=== PATIENT | male | born 1940 | race Caucasian/White ===

== ENCOUNTER 2017-03-18 14:11 | Emergency (ER) | payer MEDICARE, OTHER ==
[~2017-03-18] VITALS: Ht 185.4 cm; Wt 115.0 kg
[2017-03-18] MEDS ORDERED: HYDROmorphone 1 mg/ml syringe IV ONE (14:50)
[2017-03-18] MEDS ORDERED: HYDROmorphone 1 mg/ml syringe IM ONE (14:50)
[2017-03-18] MEDS ORDERED: HYDROmorphone inj. 0.5 MG/0.5 ML DISP.SYRIN ONE (14:52)
[2017-03-18] MEDS ORDERED: LORazepam 2 mg/ml vial IM ONE (14:55)
[2017-03-18] MEDS ORDERED: vancomycin inj 1,000 MG in normal saline 250ml IV soln 250 ML IV STA (14:58)
[2017-03-18] MEDS ORDERED: normal saline 1000ML IV soln IVB ONE (15:15)
[2017-03-18] MEDS ORDERED: vancomycin/NS 1 GM ADD-VANTAGE 250 ML IV STA (15:17)
[2017-03-18 15:19] LABS: BASOPHILS % (AUTO) 0.2 % (0-1); EOSINOPHILS # (AUTO) 0.1 X10'3 (0-0.9); EOSINOPHILS % (AUTO) 0.8 % (0-6); HEMATOCRIT 45.3 % (42.0-52.0); HEMOGLOBIN 14.9 g/dl (14.0-17.9); LYMPHOCYTES % (AUTO) 12.7 % (21-51); MEAN CORPUSCULAR HEMOGLOBIN 28.3 PG (27.0-31.0); MEAN CORPUSCULAR VOLUME 85.9 FL (78-98); MEAN PLATELET VOLUME 8.9 FL (7.4-10.4); MONOCYTES % (AUTO) 12.6 % (2-12); NEUTROPHILS # (AUTO) 5.6 X10'3 (1.8-7.7); NEUTROPHILS % (AUTO) 73.7 % (42-75); PLATELET COUNT 186 X10'3 (140-440); RED BLOOD COUNT 5.27 X10'6 (4.70-6.10); RED CELL DISTRIBUTION WIDTH 15.7 % (11.5-14.5); WHITE BLOOD COUNT 7.6 X10'3 (4.5-11.0)
[2017-03-18 15:29] LABS: PARTIAL THROMBOPLASTIN TIME 30 SECONDS (22-32); PROTHROMBIN TIME 10.7 SECONDS (9.0-12.0)
[2017-03-18 15:34] LABS: ALANINE AMINOTRANSFERASE 33 U/L (12-78); ALBUMIN 3.7 G/DL (3.4-5.0); ALBUMIN/GLOBULIN RATIO 0.9 (1.1-1.5); ALKALINE PHOSPHATASE 78 IU/L (46-116); ANION GAP 9 (8-16); ASPARTATE AMINO TRANSFERASE 16 U/L (10-37); BILIRUBIN,TOTAL 0.6 MG/DL (0.1-1.0); BLOOD UREA NITROGEN 18 MG/DL (7-18); BUN/CREATININE RATIO 16.4 (5.4-32.0); CALCIUM 9.5 MG/DL (8.5-10.1); CHLORIDE 102 MMOL/L (99-107); GLUCOSE 119 MG/DL (70-104); MAGNESIUM 2.3 MG/DL (1.5-2.4); SODIUM 138 MMOL/L (135-145); TOTAL CARBON DIOXIDE 26.6 MMOL/L (24-32); eGFR 65 ML/MIN
[2017-03-18] MEDS ORDERED: LORazepam 2 mg/ml vial IV ONE (16:05)
[2017-03-18 16:25] LABS: CLARITY,URINE CLEAR (Clear); COLOR,URINE YELLOW (Yellow); GLUCOSE, URINE NEGATIVE (Neg); KETONES,URINE NEGATIVE (Neg); LEUKOCYTE ESTERASE ,URINE NEGATIVE (Neg); NITRITES, URINE NEGATIVE (Neg); OCCULT BLOOD,URINE NEGATIVE (Neg); PROTEIN,URINE NEGATIVE (Neg); UROBILINOGEN,URINE 0.2 E.U/dL (0.2-1.0)
[2017-03-18 16:29] LABS: UA COLLECTION TYPE CLN CATCH MIDSTREAM
[2017-03-18 17:18] LABS: C-REACTIVE PROTEIN 11.25 MG/DL (0.0-0.5); CREATINE KINASE 55 U/L (39-308)
[2017-03-18] MEDS ORDERED: HYDROmorphone inj. 0.5 MG/0.5 ML DISP.SYRIN IV ONE (18:05)
[2017-03-18] MEDS ORDERED: piperacillin/tazo 3.375gm/50ml 50 ML IV SCH (20:00)
[2017-03-18] MEDS ORDERED: triamcinolone acetonide 40mg/ml inj IM ONE (20:00)
[2017-03-18] MEDS ORDERED: COLC0.6T69 PO (22:19)
[2017-03-18] MEDS ORDERED: HYDR-3965 PO (22:19)
[2017-03-18 23:01] VITALS: BP 127/84
== END 2017-03-18 23:02 | disposition home or self-care (01) ==
LOC: ER 14:12
DX: M10.9 Gout, unspecified (principal); M54.2 Cervicalgia; M25.572 Pain in left ankle and joints of left foot; M25.571 Pain in right ankle and joints of right foot; E78.00 Pure hypercholesterolemia, unspecified; R79.82 Elevated C-reactive protein (CRP); I10 Essential (primary) hypertension; Z79.899 Other long term (current) drug therapy
CPT/HCPCS: 36415; 71045; 72141; 72146; 72148; 72195; 80053; 81003; 82550; 83605; 83735; 84145; 85025; 85610; 85651; 85730; 86140; 87040; 87502; 87503; 93005; 96365; 96367; 96372; 96375; 96376; 99285; J1170; J2060; J2270; J2543; J3301; J3370; J7030

== ENCOUNTER 2021-10-31 18:20 | Emergency (ER) | payer MEDICARE ==
[~2021-10-31] VITALS: Ht 185.4 cm; Wt 93.6 kg
[~2021-10-31 18:20] MED LIST: COLC0.6T72 PO
[2021-10-31 18:25] VITALS: BP 190/108
[2021-10-31 18:56] LABS: CLARITY,URINE CLEAR (Clear); GLUCOSE, URINE NEGATIVE (Neg); KETONES,URINE NEGATIVE (Neg); LEUKOCYTE ESTERASE ,URINE SMALL (Neg); NITRITES, URINE NEGATIVE (Neg); OCCULT BLOOD,URINE LARGE (Neg); PH,URINE 6.5 (4.8-8.0); PROTEIN,URINE TRACE mg/dl (Neg); UROBILINOGEN,URINE 0.2 E.U/dL (0.2-1.0)
[2021-10-31 18:57] LABS: COLOR,URINE PINK (Yellow); UA COLLECTION TYPE CLN CATCH MIDSTREAM
[2021-10-31 19:13] LABS: BACTERIA,URINE NONE SEEN /HPF (Neg); CAL OXALATE CRYSTALS FEW /HPF (NEGATIVE); MUCUS STRANDS NONE SEEN /LPF (Neg); SQUAMOUS EPITHELIAL CELL,UR NONE SEEN /LPF (FEW); WBC,URINE 0-4 /HPF (0-4)
[2021-10-31 20:20] LABS: BASOPHILS # (AUTO) 0.1 X10'3 (0-0.2); BASOPHILS % (AUTO) 1.2 % (0-1); EOSINOPHILS # (AUTO) 0.2 X10'3 (0-0.9); EOSINOPHILS % (AUTO) 3.7 % (0-6); HEMATOCRIT 37.6 % (42.0-52.0); HEMOGLOBIN 12.3 g/dl (14.0-17.9); LYMPHOCYTES # (AUTO) 0.9 X10'3 (1.1-4.8); LYMPHOCYTES % (AUTO) 16.9 % (21-51); MEAN CORPUSCULAR HEMOGLOBIN 26.3 PG (27.0-31.0); MEAN CORPUSCULAR HGB CONC 32.6 g/dL (33.0-36.5); MEAN CORPUSCULAR VOLUME 80.7 FL (78-98); MONOCYTES # (AUTO) 0.6 X10'3 (0-0.9); MONOCYTES % (AUTO) 10.9 % (2-12); NEUTROPHILS # (AUTO) 3.7 X10'3 (1.8-7.7); NEUTROPHILS % (AUTO) 67.3 % (42-75); PLATELET COUNT 260 X10'3 (140-440); RED BLOOD COUNT 4.66 X10'6 (4.70-6.10); RED CELL DISTRIBUTION WIDTH 17.6 % (11.5-14.5); WHITE BLOOD COUNT 5.5 X10'3 (4.5-11.0)
[2021-10-31 20:26] LABS: APTT 28 SECONDS (22-32)
[2021-10-31 20:29] LABS: ALANINE AMINOTRANSFERASE 22 U/L (12-78); ALBUMIN 3.5 G/DL (3.4-5.0); ALBUMIN/GLOBULIN RATIO 0.9 (1.1-1.5); ALKALINE PHOSPHATASE 91 IU/L (46-116); ANION GAP 6 (8-16); ASPARTATE AMINO TRANSFERASE 16 U/L (10-37); BILIRUBIN,TOTAL 0.3 MG/DL (0.1-1.0); BLOOD UREA NITROGEN 18 MG/DL (7-18); CHLORIDE 105 MMOL/L (99-107); CREATININE 0.75 MG/DL (0.60-1.10); GLUCOSE 104 MG/DL (70-104); POTASSIUM 4.5 MMOL/L (3.5-5.1); SODIUM 141 MMOL/L (135-145); TOTAL CARBON DIOXIDE 30.1 MMOL/L (24-32); TOTAL PROTEIN 7.2 G/DL (6.4-8.2); eGFR > 90 ML/MIN
[2021-10-31] MEDS ORDERED: morphine IR (immed. release) 30mg tablet PO ONE (21:30)
[2021-10-31] MEDS ORDERED: MORP15TA PO (22:03)
== END 2021-10-31 22:24 | disposition home or self-care (01) ==
LOC: ER 18:21
DX: R31.9 Hematuria, unspecified (principal); N32.89 Other specified disorders of bladder; R10.30 Lower abdominal pain, unspecified; E78.00 Pure hypercholesterolemia, unspecified; I10 Essential (primary) hypertension
CPT/HCPCS: 36415; 80053; 81001; 85025; 85610; 85730; 87088; 99283

== ENCOUNTER 2024-01-05 10:12 | Day surgery (SDC) | payer MEDICARE, OTHER ==
[~2024-01-05] VITALS: Ht 185.4 cm; Wt 104.2 kg
[2024-01-05] VITALS (9 sets, daily range): BP systolic 132–168; BP diastolic 60–119; PULSE 56–70; RESP 10–12; TEMP 97.8; O2SAT 99
[2024-01-05] MEDS ORDERED: OLME40TA18 PO (10:52)
[2024-01-05] MEDS ORDERED: ATOR-2 PO (10:52)
[2024-01-05] MEDS ORDERED: ASPI-1265 PO (10:52)
[2024-01-05] MEDS ORDERED: METF-436 PO (10:52)
[2024-01-05 11:13] LABS: BASOPHILS % (AUTO) 0.7 % (0-1); EOSINOPHILS # (AUTO) 0.1 X10'3 (0-0.9); EOSINOPHILS % (AUTO) 2.4 % (0-6); HEMATOCRIT 46.6 % (42.0-52.0); HEMOGLOBIN 15.6 g/dl (14.0-17.9); LYMPHOCYTES # (AUTO) 0.7 X10'3 (1.1-4.8); LYMPHOCYTES % (AUTO) 16.7 % (21-51); MEAN CORPUSCULAR HEMOGLOBIN 31.5 PG (27.0-31.0); MEAN CORPUSCULAR HGB CONC 33.4 g/dL (33.0-36.5); MEAN CORPUSCULAR VOLUME 94.1 FL (78-98); MEAN PLATELET VOLUME 7.7 FL (7.4-10.4); MONOCYTES # (AUTO) 0.4 X10'3 (0-0.9); MONOCYTES % (AUTO) 9.4 % (2-12); NEUTROPHILS # (AUTO) 2.9 X10'3 (1.8-7.7); NEUTROPHILS % (AUTO) 70.8 % (42-75); PLATELET COUNT 139 X10'3 (140-440); RED BLOOD COUNT 4.95 X10'6 (4.70-6.10); RED CELL DISTRIBUTION WIDTH 14.3 % (11.5-14.5); WHITE BLOOD COUNT 4.1 X10'3 (4.5-11.0)
[2024-01-05 11:16] LABS: ALBUMIN 4.2 G/DL (3.4-5.0); ANION GAP 9 (8-16); BLOOD UREA NITROGEN 15 MG/DL (7-18); BUN/CREATININE RATIO 13.9 (10.0-20.0); CALCIUM 9.3 MG/DL (8.5-10.1); CHLORIDE 105 MMOL/L (99-107); CREATININE 1.08 MG/DL (0.60-1.10); GLUCOSE 110 MG/DL (70-104); POTASSIUM 4.6 MMOL/L (3.5-5.1); SODIUM 141 MMOL/L (135-145); TOTAL CARBON DIOXIDE 27.5 MMOL/L (24-32); eCRCL 59 ML/MIN; eGFR 65 ML/MIN
[2024-01-05 11:18] LABS: PROTHROMBIN TIME 10.8 SECONDS (9.0-12.0)
[2024-01-05] MEDS: normal saline 1,000 ML IV SCH (11:20)
[2024-01-05] MEDS: diphenhydrAMINE 25mg capsule PO PRN (11:20)
[2024-01-05] MEDS: sodium bicarbonate 1meq/ml syr 150 ML in dextrose 5%-water 1,000 ML IV ONE (11:37)
[2024-01-05] MEDS ORDERED: LIDOcaine 1% (10mg/ml) 2ml vial ONE (14:33)
[2024-01-05] MEDS ORDERED: verapamil 2.5 mg/ml inj IV ONE (14:34)
[2024-01-05] MEDS ORDERED: fentaNYL/PF 50MCG/1 ML 2ML syringe ONE (14:34)
[2024-01-05] MEDS ORDERED: heparin 1,000unit/ml 10ml vial 10 ML ONE (14:34)
[2024-01-05] MEDS ORDERED: iohexol 350MG/ML 100ml bottle IV ONE ×2 (14:34→15:40)
[2024-01-05] MEDS ORDERED: midazolam 1 mg/ML 2ml injection ONE ×3 (14:34→15:51)
[2024-01-05] MEDS ORDERED: iohexol 350 MG/ML 50ML vial IV ONE (14:36)
[2024-01-05] MEDS ORDERED: nitroGLYCERIN 500mcg/5mL D5W 5 ML IV ONE (14:37)
[2024-01-05] MEDS ORDERED: LIDOcaine 1% 30ml preserv. free vial ONE (15:21)
[2024-01-05] MEDS ORDERED: clopidogrel 300mg tablet ONE (16:04)
[2024-01-05] MEDS ORDERED: HYDROcodone/acetaminophen 5mg/325mg tablet PO PRN (17:35)
[2024-01-05] MEDS ORDERED: proCHLORperazine 10 MG/2 ml inj IV PRN (17:35)
[2024-01-05] MEDS ORDERED: ondansetron/PF 4mg/2ml inj IV PRN (17:35)
[2024-01-05] MEDS ORDERED: HYDROcodone/acetaminophen 10/325mg tab PO PRN (17:35)
[2024-01-08] MEDS ORDERED: CLOP-32 PO (12:09)
== END 2024-01-05 19:30 | disposition home or self-care (01) ==
LOC: SSTAY O 10:12
PROVIDERS: ATTEND Internal Medicine Cardiovascular Disease
DX: I25.118 Atherosclerotic heart disease of native coronary artery with other forms of angina pectoris (principal); I10 Essential (primary) hypertension; E11.9 Type 2 diabetes mellitus without complications; E78.5 Hyperlipidemia, unspecified; M10.9 Gout, unspecified; Z85.51 Personal history of malignant neoplasm of bladder; Z79.82 Long term (current) use of aspirin; Z79.84 Long term (current) use of oral hypoglycemic drugs; Z79.899 Other long term (current) drug therapy; Z95.5 Presence of coronary angioplasty implant and graft
CPT/HCPCS: 36415; 80048; 82948; 83735; 85025; 85610; 93005; 93458; 99152; 99153; A6258; A6402; C1725; C1751; C1769; C1874; C1887; C1894; C9600; J1644; J2003; J2250; J3010; J3490; J7030; J7070; Q0163; Q9967; Z7610

== ENCOUNTER 2024-12-06 06:22 | Day surgery (SDC) | payer MEDICARE, OTHER ==
[2024-12-06] VITALS (11 sets, daily range): BP systolic 123–147; BP diastolic 83–99; PULSE 56–63; RESP 13–16; O2SAT 93–96
[~2024-12-06] VITALS: Ht 185.4 cm; Wt 96.4 kg
[~2024-12-06 06:22] MED LIST changes: +ASPI-1265 PO; +ATOR-2 PO; +CLOP-32 PO; -COLC0.6T72 PO; +METF-436 PO; +OLME40TA18 PO
[2024-12-06] MEDS ORDERED: CLOP75TA34 PO (06:59)
--- NOTE | 2024-12-06 06:59 | ELECTROCARDIOGRAPH REPORT ---
[facility] Test Date: 2024-12-06 Test Time: 06:56:14 Pat Name: LUTHER PENN Department: [facility] Patient ID: [id number] Room: Gender: M Search Marketing Coordinator: DENISE : 1940 Requested By: CAROLINA POLANCO Order Number: [id number] Reading MD: Dr. Ari Mehta Measurements Intervals [place] Rate: 67 P: 13 [place]: 157 QRS: -6 QRSD: 106 T: 86 QT: 424 QTc: 448 Interpretive Statements Sinus rhythm Atrial premature complexes Electronically Signed On 12-09-2024 7:10:[address] Ari Mehta Please click the below link to view image of tracing.
[2024-12-06] MEDS ORDERED: EZET10TA80 PO (07:03)
[2024-12-06 07:43] LABS: INR 1.0 INR
[2024-12-06 07:49] LABS: MEAN PLATELET VOLUME 8.2 FL (7.4-10.4); RED CELL DISTRIBUTION WIDTH 15.1 % (11.5-14.5)
[2024-12-06 08:14] LABS: CREATININE 0.92 MG/DL (0.60-1.10); TOTAL CARBON DIOXIDE 24.0 MMOL/L (24-32); eCRCL 68 ML/MIN; eGFR 78 ML/MIN
[2024-12-06] MEDS: sodium bicarbonate 1meq/ml syr 150 ML in dextrose 5%-water 1,000 ML IV ONE (08:41)
[2024-12-06] MEDS ORDERED: midazolam 1 mg/ML 2ml injection ONE ×2 (08:51→11:20)
[2024-12-06] MEDS ORDERED: LIDOcaine 1% (10mg/ml) 2ml vial ONE ×2 (08:51→11:27)
[2024-12-06] MEDS ORDERED: verapamil 2.5 mg/ml inj IV ONE (08:51)
[2024-12-06] MEDS ORDERED: fentaNYL/PF 50MCG/1 ML 2ML syringe ONE (08:52)
[2024-12-06] MEDS ORDERED: nitroGLYCERIN 500mcg/5mL D5W 5 ML IV ONE (08:52)
[2024-12-06] MEDS ORDERED: iohexol 350 MG/ML 50ML vial IV ONE (08:52)
[2024-12-06] MEDS ORDERED: heparin 1,000unit/ml 10ml vial 10 ML ONE (08:52)
--- NOTE | 2024-12-06 13:53 | CARDIOLOGY REPORT ---
DATE OF SERVICE: 12/06/2024 DICTATING PHYSICIAN: CAROLINA POLANCO DO CARDIAC CATHETERIZATION REPORT REFERRING PHYSICIAN: Mindi Davis MD. CLINICAL HISTORY: This 84-year-old man has had previous stenting to the LAD and circumflex coronary arteries. He is not currently experiencing chest pain but has easy exertional dyspnea. There has been some concern that he has aortic stenosis. For those reasons, a cardiac catheterization was performed. PROCEDURES PERFORMED: * Right heart catheterization. * Left heart catheterization. * Left ventriculography. * Selective coronary arteriography. * There was 1 hour and 15 minutes of conscious sedation supervision. DESCRIPTION OF PROCEDURE: The patient was sedated with fentanyl and Versed. He was then prepared and draped in the usual manner. Right heart catheterization was performed using a 6-Guamanian sheath in the right arm basilic vein. Cardiac output was determined by thermal dilution technique. A 6-Guamanian sheath was placed in the radial artery using a standard protocol and technique. Using this sheath and a Choice PT2 guidewire, the calcified aortic valve was eventually passed with a straight wire. An Amplatz catheter used to align the wire was passed across the valve. The wire was pulled out temporarily to shape a large J. It was then replaced in the Amplatz. The Amplatz catheter was removed and a double-lumen Viet catheter was placed across the aortic valve. After appropriate zeroing and measuring, the patient was found to have about an 8 mm [id number]-lbfw gradient across the aortic valve. Cardiac output during the right heart catheterization was 3.3. According to these numbers, the valve area was 1.17 cm2. HEMODYNAMIC DATA: The mean right atrial pressure was 1, right ventricular pressure was 23/2, pulmonary capillary wedge pressure average was 1. Pulmonary arterial pressure was 21/2 mmHg. Left ventricular end diastolic pressure was 12 mmHg. LEFT VENTRICULOGRAM: The left ventriculogram was technically satisfactory. The ejection fraction appeared to be about 65-70%. There was very heavy calcification of the aortic valve. CORONARY ARTERIOGRAPHY: The coronary arteriograms were technically satisfactory. The patient had a right dominant system. RIGHT CORONARY ARTERY: The right coronary was a large main stem vessel. There was a small posterior descending branch, a small first posterolateral branch, and a medium-sized second posterolateral. The proximal right coronary contained approximately a 60% stenosis proximally. LEFT MAIN CORONARY ARTERY: The left main was a large, unobstructed vessel trifurcating into the left anterior descending intermediate and circumflex coronary artery. LEFT ANTERIOR DESCENDING CORONARY ARTERY: The LAD was a medium to large transapical vessel. There was a 60% stenosis proximally, about a 50% stenosis in the mid vessel and a 50-60% stenosis in the distal vessel. INTERMEDIATE ARTERY: The intermediate was a large vessel, narrowed by about 60-70% at its origin. CIRCUMFLEX CORONARY ARTERY: The circumflex was a large main stem vessel. The first obtuse marginal was medium to large in size. There were two 75% stenoses in the proximal portion of this vessel. Distally, there was a small posterolateral branch narrowed by about 75%. CONCLUSIONS: * Severe aortic stenosis, although pressure measurements were low. There was an 8 mm gradient across the aortic valve. The cardiac output with 3 separate runs was 3.3 L each time. Once again, the aortic valve area was estimated to be 1.17 cm2. * Diffuse 3-vessel coronary artery disease, which is extensive enough that multivessel PCI does not look like a reasonable approach. RECOMMENDATIONS: The patient may be best served by multivessel bypass and aortic valve replacement since the valve area is almost 1 cm2. CAROLINA POLANCO DO TID: [id number] RECEIPT: [id number] SJ IRWIN
== END 2024-12-06 17:00 | disposition home or self-care (01) ==
LOC: SSTAY O 06:22
PROVIDERS: ATTEND Internal Medicine Cardiovascular Disease
DX: I25.118 Atherosclerotic heart disease of native coronary artery with other forms of angina pectoris (principal); I49.1 Atrial premature depolarization; I10 Essential (primary) hypertension; E11.9 Type 2 diabetes mellitus without complications; E78.5 Hyperlipidemia, unspecified; M10.9 Gout, unspecified; I35.0 Nonrheumatic aortic (valve) stenosis; Z87.891 Personal history of nicotine dependence; Z79.02 Long term (current) use of antithrombotics/antiplatelets; Z79.84 Long term (current) use of oral hypoglycemic drugs; Z79.899 Other long term (current) drug therapy; Z95.5 Presence of coronary angioplasty implant and graft; Z96.641 Presence of right artificial hip joint; Z98.890 Other specified postprocedural states
CPT/HCPCS: 36415; 80048; 83735; 85025; 85610; 93005; 93460; 99152; 99153; A6258; A6402; C1751; C1769; C1887; C1894; J1644; J2003; J2250; J3010; J3490; J7030; J7070; Q0163; Q9967; Z7610; A6449

== ENCOUNTER 2024-12-18 18:45 | Inpatient (IN) | payer MEDICARE, OTHER ==
[~2024-12-18] VITALS: Ht 185.4 cm; Wt 106.0 kg
[~2024-12-18 18:45] MED LIST changes: -CLOP-32 PO; +CLOP75TA34 PO; +EZET10TA80 PO
--- NOTE | 2024-12-18 18:56 | ELECTROCARDIOGRAPH REPORT ---
[facility] Test Date: 2024-12-18 Test Time: 18:53:18 Pat Name: LUTHER PENN Department: EMERGENCY ROOM Room: [place] [address] Gender: M Dividend Deposit Entry Clerk: : 1940 Requested By: MARIA DOLORES REYNOSO Order Number: [id number] Reading MD: Dr. Oscar Ho Measurements Intervals [place] Rate: 74 P: -13 [place]: 160 QRS: -41 QRSD: 95 T: 82 QT: 406 QTc: 451 Interpretive Statements Sinus rhythm Left axis deviation Abnormal R-wave progression, late transition Electronically Signed On 12-20-2024 7:41:[address] Oscar Ho Please click the below link to view image of tracing.
--- NOTE | 2024-12-18 19:12 | Physician Documentation ---
History of Present Illness ~ Chief Complaint: Chest Pain Stated Complaint: CP Time Seen by MD: 18:48 Primary Medical Doctor: steve ULRICH Patient presents to the emergency room with chief complaint of chest pain. History of coronary disease with multiple stent placements. He had a recent cardiac catheterization performed by Dr. Aguayo who recommended bypass along with aortic valve surgery instead of PCI. He states that has pain has been getting worse with activity. Pain is described as dull in nature Medication Reconciliation Allergies: Coded Allergies: No Known Drug Allergies (Verified Allergy, Unknown, 03/18/17) Scheduled Aspirin (Aspirin), 1 TAB PO DAILY, (Reported) Atorvastatin Calcium (Atorvastatin Calcium), 1 TAB PO DAILY, (Reported) Clopidogrel Bisulfate (Clopidogrel), 1 TAB PO DAILY, (Reported) Ezetimibe (Ezetimibe), 1 TAB PO DAILY, (Reported) Metformin Hcl (Metformin Hcl), 1 TAB PO DAILY, (Reported) Olmesartan Medoxomil (Olmesartan Medoxomil), 1 TAB PO DAILY, (Reported) Past Medical History Past Medical History: High Cholesterol, Hypertension, Gout Past Surgical History: other Other Past Surgical History: CARDIAC STENT Drug Use: none Lives with: Spouse Lives In: Home Occupation: retired Review of Systems ROS All review of systems negative except as per HPI Physical Exam Vital Signs: Temperature: 98.5, Source: Oral, Heart Rate: 73, Respiratory Rate: 18, BP: 111/73, Pulse Oximetry: 96, Weight: 94.400 Oxygen Flow Rate: 0 Physical Exam General: Patient is awake, alert, oriented x4 in no acute distress Head: Normocephalic and atraumatic. Eyes: Conjunctival normal. EOMI. PERRL. ENT: Mucous membranes moist. Neck: Supple, trachea is midline. Chest: Clear to auscultation bilaterally without rales, rhonchi, or wheezes. There is no accessory muscle use or retractions. Cardiac: RRR without murmurs, gallops, or rubs. Abd: Soft, nondistended, nontender, with normoactive bowel sounds. No guarding, rebound, or rigidity. Progress Progress Note I have personally spoken with our Cardiothoracic surgeon he had reviewed patient's case and we would like him to be admitted for definitive management Results/Orders Results/Orders Orders - SONNY ROWE MD Chest,Single View (12/18/24 18:48) Monitor (12/18/24 18:48) Saline Lock (12/18/24 18:48) Oxygen (12/18/24 18:48) Cbc/Diff (12/18/24 18:48) Hs Troponin I W Calculations (12/18/24 20:48) Hs Troponin I W Calculations (12/18/24 21:48) Completed Orders - SONNY ROWE MD Chest,Single View (12/18/24 18:48) BMP (12/18/24 18:48) PBNP (12/18/24 18:48) Electrocardiogram (12/18/24 18:48) Hs Troponin I W Calculations (12/18/24 18:48) Ondansetron Inj. (Zofran 4mg/2ml Vial) (12/18/24 19:25) Morphine 4mg/Ml Inj. (Morphine Inj.) (12/18/24 19:25) Medications Received in ER Medications (Trade) Dose Ordered Sig/Miryam Route PRN Reason Start Time Stop Time Status Last Admin Dose Admin (Zofran 4mg/2ml vial) 4 mg ONCE ONCE IV 12/18/24 19:25 12/18/24 19:26 DC 12/18/24 19:36 4 MG (morphine inj.) 4 mg ONCE ONCE IV 12/18/24 19:25 12/18/24 19:26 DC 12/18/24 19:36 4 MG Vital Signs 12/18/24 12/18/24 18:49 19:36 Temp 98.5 Pulse 73 Resp 18 16 B/P (MAP) 111/73 Pulse Ox 96 O2 Flow Rate 0 Laboratory Tests Test 12/18/24 19:09 CBC Comment Sodium Level 141 Potassium Level 4.6 Chloride Level 104 Carbon Dioxide Level 28.7 Anion Gap 8 Blood Urea Nitrogen 18 Creatinine 0.72 Estimated GFR/1.73 m2 > 90 BUN/Creatinine Ratio 25.0 H Glucose Level 131 H Calcium Level 8.9 Troponin I High Sensitivity 11 Pro-B-Type Natriuretic Peptide 67 Albumin 2.9 L Chemistry Comments Medical Decision Making Additional information obtaine: old records Findings Patient presents to the emergency room with chest pain as per HPI. That has spoken with Dr. Malone regarding patient's case. Troponins negative. We will admit for definitive management. Heart Score: 6 Differential Dx:Considerations: Include: angina, aortic dissection, chest wall pain, cholelithiasis, CHF, costochondritis, esophageal reflux/spasm, gastritis, herpes zoster, myocardial infarction, pericarditis, pleuritis, pancreatitis, pneumonia, pneumothorax, pulmonary embolus, other Departure Admitted to Inpatient Unit: yes, to hospitalist Impression: Primary Impression: Chest pain on exertion Condition: Guarded Referrals: NO PRIMARY CARE PROVIDER (PCP) Signature Scribe Signature: No scribe Attestation: The note accurately reflects work and decisions made by me.Sonny Rowe MD 12/18/24 19:45 SONNY ROWE MD Dec 18, 2024 19:12
--- NOTE | 2024-12-18 19:22 | RADIOLOGY REPORT ---
EXAM: DI CHEST,SINGLE VIEW TECHNIQUE: Single frontal chest radiograph CLINICAL HISTORY: CP COMPARISON: None FINDINGS/IMPRESSION: The lungs are clear. The cardiomediastinal silhouette is unremarkable. No pleural effusion or pneumothorax. No acute osseous abnormality.
[2024-12-18] MEDS: ondansetron/PF 4mg/2ml inj IV ONE (19:36)
[2024-12-18] MEDS: morphine 4 MG/ML inj SYRINge IV ONE (19:36)
[2024-12-18 19:41] LABS: CREATININE 0.72 MG/DL (0.60-1.10); PRO BRAIN NATRIURETIC PEPTIDE 67 PG/ML (0-450); TOTAL CARBON DIOXIDE 28.7 MMOL/L (24-32); eCRCL 86 ML/MIN; eGFR > 90 ML/MIN
[2024-12-18 19:44] LABS: MEAN PLATELET VOLUME 8.2 FL (7.4-10.4); RED CELL DISTRIBUTION WIDTH 15.8 % (11.5-14.5)
[2024-12-18] MEDS ORDERED: OXYB5TAB21 PO (20:03)
[2024-12-18] MEDS ORDERED: magnesium hydroxide 30ml (MOM) UD suspension PO PRN (20:55)
[2024-12-18] MEDS ORDERED: ondansetron/PF 4mg/2ml inj IV PRN (20:55)
[2024-12-18] MEDS ORDERED: mag hydrox/Alum hydrox/simeth 30ml oral suspension PO PRN (20:55)
--- NOTE | 2024-12-18 21:10 | HISTORY AND PHYSICAL-Residence ---
History & Physical Providers to CC Resident Creating Document: MORGAN GONCALVES, PATRICIA ~ History of Present Illness Primary Medical Doctor: steve Reason for Admit\Complaint: CABG History of Present Illness This is an 84-year-old male with a history of CAD s/p PCI of LAD and LCX two years ago, hypertension, diabetes mellitus, came to the ER with a chief complaint of frequent episodes of chest pain. The chest pain is located more on the left side, stabbing type, nonradiating, graded 10/10. The pain does not correlate with activity, occurs even at rest. For the last two weeks he has been having increased episodes of chest pain with more intensity, about 3-4 episodes a day, each lasting about 40 minutes. Denies any other complaints of palpitations, shortness of breadth, sweating, leg swellings, nausea, vomiting, fever. His conference center coordinator is Dr. Aguayo On 12/06/2024 he had cardiac catheterization done by Dr. Aguayo, showed diffuse three-vessel coronary artery disease which was extensive that a PCI could not be for performed, also showed severe aortic stenosis. Patient has been referred to Dr. Malone and a CABG and aortic valve replacement has been planned. The ER physician contacted Dr. Malone who recommended to admit the patient and we will likely do with the surgery tomorrow. Allergies: Coded Allergies: No Known Drug Allergies (Verified Allergy, Unknown, 03/18/17) Home Medications Home Medications Active Reported Oxybutynin Chloride 5 Mg Tablet 0.5 Tab PO Q12H 30 Days Ezetimibe 10 Mg Tablet 1 Tab PO DAILY Clopidogrel (Clopidogrel Bisulfate) 75 Mg Tablet 1 Tab PO DAILY Aspirin 81 Mg Tab.chew 1 Tab PO DAILY Metformin Hcl 500 Mg Tablet 1 Tab PO DAILY Olmesartan Medoxomil 40 Mg Tablet 1 Tab PO DAILY Atorvastatin Calcium 80 Mg Tablet 1 Tab PO DAILY Past Medical History Past Medical History CAD s/p PCI of LAD and LCX two years ago Hypertension Borderline diabetes Hyperlipidemia. History of bladder cancer 40 years ago, treated with surgery. Past Surgical History Surgical History Comment Right hip replacement 10 years ago Past Social History Social History Comment Denies any history of smoking Drinks toddy occasional No history of any other drug use Lives with his and is functionally independent Drug Use: None Lives with: Spouse Lives In: Home Occupation: retired ROS Constitutional: Denies: no symptoms reported, see HPI, chills, diaphoresis, fever, malaise, weakness, other Eyes: Denies: no symptoms reported, see HPI, pain, discharge, blurred vision, double vision, itching, photophobia, redness, tearing, other ENT: Denies: no symptoms reported, see HPI, ear pain, ear bleeding, ear discharge, hearing loss, ear ringing, nose pain, nose bleeding, nose congestion, nose discharge, throat pain, throat swelling, voice change, mouth pain, mouth bleeding, mouth swelling, other Respiratory: Denies: no symptoms reported, see HPI, cough, orthopnea, shortness of breath, SOB with exertion, SOB at rest, stridor, wheezing, hemoptysis, pain with breathing, other Cardiovascular: Reports: chest pain Gastrointestinal: Denies: no symptoms reported, see HPI, abdomen distended, abdominal pain, nausea, vomiting, diarrhea, constipated, melena, hematemesis, hematochezia, rectal bleeding, rectal pain, dysphagia, poor appetite, poor fluid intake, other Genitourinary: Denies: no symptoms reported, see HPI, burning, discharge, dysuria, frequency, flank pain, hematuria, incontinence, pain, decreased urine output, urgency, other Neurological: Denies: no symptoms reported, see HPI, speech problem, headache, dizziness, fainting, tingling, left sided numbness, right sided numbness, left sided weakness, right sided weakness, problems walking, unable to move lower ext, unable to move upper ext, petit mal seizures, tonic-clonic seizures, cognitive dysfunction, other Musculoskeletal: Denies: no symptoms reported, see HPI, pain, swelling, back pain, gout, joint pain, joint swelling, muscle pain, muscle swelling, muscle stiffness, neck pain, other Integumentary: Denies: no symptoms reported, see HPI, rash, itching, lesions, lumps, bruise(s), wound(s), laceration(s), dryness, change in color, other Exam Vitals: Vital Signs Date Time Temp Pulse Resp B/P (MAP) Pulse Ox O2 Delivery O2 Flow Rate FiO2 12/18/24 20:06 18 12/18/24 20:05 61 97 0 12/18/24 18:49 98.5 General: General: Awake, alert, oriented Head: Normocephalic with an atraumatic Eyes: Pupils- 3mm, reacting to light, conjunctiva- slightly pale, nonicteric Nose and throat: No polyps, septum- normal, no mucosal ulcers Neck: Supple, no lymphadenopathy, no carotid bruit Respiratory: no use of accessory muscles of respiration, Bilateral normal vesiscular breath sounds heard. Cardiac: S1-S2 heard, rythm regular, ejection systolic murmur in right sternal border Abdomen: Soft, no tenderness, no guarding, no rigidity, normal bowel sounds Extremities: no clubbing, no edema, no deformities, peripheral pulses- 2+ Skin: warm and dry, no rash, Neuro no focal neurological deficits Diagnostic Data Last Recorded Lab Results: 12/18/24190812/18/241908 Advance Care Planning Advanced Care plannin - 30 Minutes (I spent 17 minutes in discussing various resuscitative measures, the patient chose to be a DNR.) Additional Plan Assessment This is an 84-year-old male with a history of CAD s/p PCI of LAD and LCX two years ago, hypertension, diabetes mellitus, came to the ER with a chief complaint of frequent episodes of chest pain. On 12/06/2024 he had cardiac catheterization done by Dr. Aguayo, showed diffuse three-vessel coronary artery disease which was extensive that a PCI could not be for performed, also showed severe aortic stenosis. Patient has been referred to Dr. Malone and a CABG and aortic valve replacement has been planned. The ER physician contacted Dr. Malone who recommended to admit the patient and we will likely do with the surgery tomorrow. Plan Angina History of CAD s/p PCI Extensive three-vessel CAD Severe Aortic stenosis Patient is having increased episodes of frequent angina Troponins negative EKG showed no acute ST-T changes We will request echo from Dr. Aguayo's office. Cardiac catheterization done on 12/06/[address] THRASHER showed extensive three- vessel coronary artery disease, severe aortic stenosis Dr. Malone is aware of the patient. Possible CABG along with the aortic valve replacement tomorrow Patient's home medication include aspirin, Plavix the last dose was today. Placed on NPO Hypertension Patient's blood pressure is in the normal range Patient's home medication include olmesartan 40 mg Currently patient is NPO, reconciled after surgery Type 2 diabetes mellitus A1c ordered Low-dose supplement protocol ordered Hyperlipidemia Lipid panel ordered Continue patient's home medication atorvastatin 80 mg Code status: DNR DVT prophylaxis:none Diet: NPO Morgan Goncalves M.D PGY2 Patient's home medication include Date of Service: Dec 18, 2024 Billing Provider: BLANCA CARRINGTON MD Addendum Attestation I agree with the residents assessment and plan as below: The patient recently underwent an angiogram for chest pain and was found ot have diffuse disease. He is admitted for a possible cabg Plan: NPO aftermidnight on asa and plavix restart metoprolol post or CCT 51 min using HIPPA compliant A/V technology MORGAN GONCALVES, RES Dec 18, 2024 21:10 BLANCA CARRINGTON MD Dec 19, 2024 03:39
[2024-12-18 22:30] VITALS: BP 131/77; PULSE 59; RESP 13; TEMP 97.3; O2SAT 96
[2024-12-18 23:30] VITALS: RESP 22; O2SAT 98
[2024-12-19] VITALS (9 sets, daily range): BP systolic 106–123; BP diastolic 63–68; PULSE 55–73; RESP 12–19; TEMP 96.9–98.2; O2SAT 94–97
[2024-12-19] MEDS: morphine 4 MG/ML inj SYRINge IV PRN ×2 (02:52→11:58)
[2024-12-19 05:56] LABS: APTT 25 SECONDS (22-32); INR 1.1 INR
[2024-12-19 06:15] LABS: CHOL/HDL RATIO 2.5 (0.00-4.99); CREATININE 0.79 MG/DL (0.60-1.10); LDL CHOLESTEROL 60 MG/DL (50-100); TOTAL CARBON DIOXIDE 27.6 MMOL/L (24-32); eCRCL 79 ML/MIN; eGFR > 90 ML/MIN
[2024-12-19] MEDS: INSULIN LISPRO 100 UNIT/ML INSULN.PEN MULTI-DOSE SQ SCH (07:00)
--- NOTE | 2024-12-19 07:17 | ELECTROCARDIOGRAPH REPORT ---
[facility] Test Date: 2024-12-19 Test Time: 07:15:29 Pat Name: LUTHER PENN Department: [facility]S Room: [place] [address] A Gender: M Field Crew Chief: YUDITH : 1940 Requested By: ALEX GONCALVES Order Number: [id number] Reading MD: Dr. MAYTE Diaz Measurements Intervals [place] Rate: 51 P: 1 [place]: 187 QRS: 15 QRSD: 101 T: 132 QT: 467 QTc: 431 Interpretive Statements Sinus rhythm Atrial premature complex Repol abnrm suggests ischemia, lateral leads Baseline wander in lead(s) V3 Electronically Signed On 12-19-2024 16:51:[address] MAYTE Diaz Please click the below link to view image of tracing.
[2024-12-19] MEDS: docusate sod 100mg capsule PO SCH (07:57)
[2024-12-19] MEDS: MESSAGE TO PHARMACY IJ ONE (09:00)
[2024-12-19] MEDS ORDERED: dextrose 50%-water 50ml dispensing syringe IV PRN (09:00)
[2024-12-19] MEDS ORDERED: ceFAZolin 2gm/dext,iso 50mL 50 ML IV ONE (09:00)
[2024-12-19] MEDS ORDERED: Insulin Reg/NS 100units/100mL 100 ML IV SCH (09:00)
[2024-12-19] MEDS ORDERED: insulin glargine (Lantus) pen - multi-dose SQ PRN (09:00)
[2024-12-19] MEDS: VANCOMYCIN/H2O 1.5g/300mL PB 300 ML IV ONE (09:00)
[2024-12-19] MEDS: MESSAGE TO NURSING PO ONE ×5 (09:00→10:00)
[2024-12-19 09:04] LABS: MEAN PLATELET VOLUME 8.0 FL (7.4-10.4); RED CELL DISTRIBUTION WIDTH 15.5 % (11.5-14.5)
--- NOTE | 2024-12-19 09:11 | CONSULTATION REPORT ---
Consult Providers to CC ~ History of Present Illness Reason for Admit\Complaint: Chest pain with known coronary artery disease and moderate aortic sten History of Present Illness Mr. Joseph is a very nice 84-year-old gentleman who has a known history of coronary artery disease. He underwent left heart catheterization approximately two years ago. At that time he had stents placed in his LAD and circumflex system. Due to problems with increasing aortic stenosis as well as some exertional dyspnea he underwent repeat left heart catheterization last week. This revealed moderate disease in the LAD, diagonal, ramus and obtuse marginal. This is in addition with moderate aortic stenosis with a valve area of approximately 1 centimeter squared. He was discharged to home with plans for consultation was cardiac surgery. He was seen in the emergency department last night secondary to 10/10 chest pain. This occurred at rest and lasted approximately 40 minutes. It was associated with diaphoresis or nausea. Troponins in the ED were negative. Despite this he was admitted for further workup. He denies PND, orthopnea, peripheral edema. He is a nonsmoker. He is also not diabetic. Allergies: Coded Allergies: No Known Drug Allergies (Verified Allergy, Unknown, 03/18/17) Home Medications Home Medications Active Reported Oxybutynin Chloride 5 Mg Tablet 0.5 Tab PO Q12H 30 Days Ezetimibe 10 Mg Tablet 1 Tab PO DAILY Aspirin 81 Mg Tab.chew 1 Tab PO DAILY Metformin Hcl 500 Mg Tablet 1 Tab PO DAILY Atorvastatin Calcium 80 Mg Tablet 1 Tab PO DAILY ROS ROS Generally he has had no anorexia or malaise, jaundice, pruritus, fever, chills or weight loss. GI has had no nausea or vomiting, diarrhea, constipation, melena or bright red blood per rectum. he denies dysuria, pyuria, hematuria, urgency, hesitancy or frequency. Neuromuscular he denies frequent or severe headaches. He has had no change in his visual yuan. He denies difficulty with speech, swallowing, ambulation or coordination. Exam Vitals: Vital Signs Date Time Temp Pulse Resp B/P (MAP) Pulse Ox O2 Delivery O2 Flow Rate FiO2 12/19/24 07:56 55 12/19/24 02:52 12 12/19/24 02:00 97.0 106/65 (79) 96 Room Air 12/18/24 23:30 0.0 General: He is a well-developed gentleman who appears to be a bit younger than his stated age. He is in no distress HEENT: Normocephalic and atraumatic. No facial asymmetry. Dentition in fair repair. Neck: Supple with midline trachea. Carotid pulses 2+ with bilaterally transmitted murmur. No JVD Chest: Normal AP diameter. Lungs were clear to auscultation Cardiovascular: Regular rate and rhythm with grade 3/6 systolic flow murmur. S2 single. No S3 or S4 noted. Abdomen: Soft and nontender normoactive bowel sounds. No masses or organomegaly noted. Extremities: No evidence of lytic or greater saphenous varicosities. No peripheral edema. Diagnostic Data Last Recorded Lab Results: 12/18/24 19012/19/24 [id number] Diagnostic Data: Laboratory Tests Test 12/19/24 05:03 Prothrombin Time 10.8 SECONDS (9.0-12.0) INR International Normalized Ratio 1.1 INR Activated Partial Thromboplast Time 25 SECONDS (22-32) Coagulation Comments Additional Plan Mr. Joseph the very nice 84-year-old gentleman who has significant three-vessel coronary disease associated with moderate aortic stenosis. He has been admitted for chest pain. We have recommended that he undergo coronary artery bypass grafting as well as aortic valve replacement. The indications alternatives to surgery as well as the risks, benefits and possible complications associated with aortic valve replacement and coronary artery bypass grafting in the setting have been discussed at length with the patient. He states that he understands and accepts these and requested that we proceed. All of his questions have been answered to his stated satisfaction. Unfortunately he has been on Plavix which he took his last dose yesterday. We will schedule surgery for Monday. He will need to be a full code to undergo cardiac surgery. JACKELYN MACK III, MD Dec 19, 2024 09:11
[2024-12-19 11:09] LABS: APTT 27 SECONDS (22-32); INR 1.1 INR
--- NOTE | 2024-12-19 11:09 | RADIOLOGY REPORT ---
DI CHEST,TWO VIEWS, CATH HEART CATH W/WO STENT, CATH HEART CATH W/WO STENT CLINICAL HISTORY: PRE CARDIAC SURGERY COMPARISON: DI CHEST,SINGLE VIEW on DOS: 12/18/24 TECHNIQUE: Frontal and lateral view of the chest was obtained FINDINGS: Lines and Tubes: None Lungs: No focal consolidation. Pleura: No effusion. No pneumothorax. Cardiomediastinal contours: Unremarkable Bones: No acute osseous abnormality. IMPRESSION: No acute cardiopulmonary disease.
--- NOTE | 2024-12-19 11:35 | VASCULAR REPORT ---
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 : VEDA HAJI Preliminary Report The above named patient was referred for a NON-INVASIVE CEREBROVASCULAR EVALUATION. The evaluation includes grayscale imaging, color flow Doppler and spectral analysis of the bilateral carotid and vertebral arteries. Patient IN-PATIENT L tatihnBilateral Indications Preop for CABG. Doppler Spectral Velocity Analysis Right Left pCCA 59/15 cm/s pCCA 95/25 cm/s dCCA 57/15 cm/s dCCA 57/16 cm/s ECA 58/ cm/s ECA 55/ cm/s pICA 59/13 cm/s pICA 69/25 cm/s Mary 64/24 cm/s Mary 62/26 cm/s dICA 53/21 cm/s dICA 66/29 cm/s Vert. 49/19 cm/s Vert. 25/8 cm/s Subcl. 91/cm/s Subcl. 70/ cm/s ICA/CCA 1.12 ICA/CCA 1.21 Real-Time B-Mode Imaging Area Findings Right Left CCA Plaque Composition Intimal thickening Intimal thickening BIF Plaque Composition Heterogeneous with calcification Heterogeneous with calcification Plaque Description Irregular Irregular Plaque Area Focal Focal Vertebral Antegrade Antegrade Subclavian Multiphasic Multiphasic Impression: No sonographic evidence of stenosis or occlusion in bilateral carotid arteries. All carotid arteries show less than 50% stenosis bilaterally. Bilateral vertebral arteries show antegrade flow. Multiphasic flow noted in bilateral subclavian arteries.
[2024-12-19] MEDS ORDERED: morphine 4 MG/ML inj SYRINge IV PRN (11:46)
--- NOTE | 2024-12-19 12:39 | VASCULAR REPORT ---
Lower Extremity Duplex Doppler Reflux Study Date: 12/19/2024 10:22 AM Clinical History: Preop for CABG Comparison: VASC VL CAROTID on DOS: 12/19/24 Findings: Duplex Doppler evaluation including color Doppler and spectral/pulsed waveform analysis of the deep and superficial veins of the lower extremities was performed for evaluation of reflux using tilt table technique and Valsalva and augmentation maneuvers. Reflux is defined as lasting greater than one second for the purposes of this examination. Vein Measurements Great Saphenous Small Saphenous Right Lef Right Left Saph-Fem. 3.47mm 5.97mm Proximal Junction Mid Thigh 3.43mm 4.61mm Mid Distal Thigh 3.76mm 4.05mm Distal Proximal Calf 3.40mm 3.27mm Mid Calf 2.49mm 3.32mm Distal Calf 2.33mm 1.98mm CONCLUSION Bilateral great saphenous vein mapped and marked on both legs. No thrombus detected bilaterally.
[2024-12-19 15:12] LABS: ABG BASE EXCESS 1.4 mmol/L (-2.0-3.0); ABG HCO3 25.3 mmol/L (21.0-28.0); ABG OXYGEN SATURATION 93.4 % (94.0-98.0); ABG PCO2 (T) 38.0 mmHg (35.0-48.0); ABG PH (T) 7.442 (7.350-7.450); ABG PO2 (T) 68.0 mmHg (83.0-108.0); ALLEN'S TEST POSITIVE; FCOHb 0.9 % (0.5-1.5); FHHb 6.5 % (0.0-5.0); FIO2 21.0 mmHg/%; FMetHb 0.1 % (0.0-1.5); FO2Hb 92.5 % (94.0-98.0); MODE ROOM AIR; PATIENT TEMPERATURE 37.0; TOTAL HEMOGLOBIN 14.7 G/dl (13.5-17.5)
--- NOTE | 2024-12-19 15:35 | RADIOLOGY REPORT ---
Indication: preop AVR/CABG Technique: CT axial images of the chest are obtained without contrast. Coronal and sagittal reformats were obtained. Radiation Dose Information: CTDI volume is 19 mGy. Dose-length product is 731 mGy*cm Comparison: None FINDINGS: Trachea is patent. No pneumothorax. Bilateral atelectasis. 6 mm left lower lobe ground-glass nodule. Heart normal in size. Coronary artery calcification disease. Aortic annular calcifications. Mild aortic arch, Descending thoracic atherosclerotic disease. No supraclavicular or axillary lymphadenopathy. Pancreatic parenchymal calcifications. Gastric distention. Moderate volume stool in the colon. No aggressive osseous process. Moderate thoracic degenerative disc disease. IMPRESSION: Limited evaluation without contrast. No pulmonary airspace consolidation. Aortic annular calcifications. Mild aortic arch and descending thoracic aortic atherosclerotic disease Coronary artery calcification disease. 6 mm left lower lobe ground-glass nodule. Recommend follow-up per Fleischner society criteria guidelines. Other findings as described.
--- NOTE | 2024-12-19 17:51 | PROGRESS NOTE- Residence ---
Progress Note - Resident Providers to CC Resident Creating Document: ADELAIDE SCHMIDT RES ~ Antibiotic Timeout Antibiotic Ordered?: Yes Subjective Patient seen and examined at bedside. Currently he does not have any chest pain. He states that he has been having on and off chest pain for the last couple of days. He is scheduled for CABG with aortic valve replacement on Monday by Dr. Malone. Objective Vital Signs Date Time Temp Pulse Resp B/P (MAP) Pulse Ox O2 Delivery O2 Flow Rate FiO2 12/19/24 15:22 73 15 96 Room Air* 0 21 12/19/24 11:00 96.9 113/67 (82) Result Diagram: 12/19/24 0817 12/19/24 0507 General: Awake and Alert, no acute distress. HEENT: Conjunctiva pink, Sclera clear, Mucus Membranes moist. Neck: Supple without masses and tenderness. Resp: Unlabored. Equal breath sounds bilaterally. Heart: Regular rhythm, grade 3/6 systolic ejection murmur in the aortic area. Abdomen: Soft and non tender no organomegaly. Normal bowel sounds x4 quadrant normoactive. No guarding or rigidity. Extremities: Normal ROM, no swelling, nontender. No cyanosis,clubbing or edema. Musculoskeletal: Normal posture and gait. No joint swelling, deformity or tenderness, full range of motion and strength 5 x 5 in all extremities. 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 Skin: Warm and Dry. Coagulation Studies Laboratory Tests Test 12/19/24 09:54 Prothrombin Time 10.9 SECONDS (9.0-12.0) INR International Normalized Ratio 1.1 INR Activated Partial Thromboplast Time 27 SECONDS (22-32) Coagulation Comments Assessment Assessment 84-year-old male with history of CAD status post PCI of LAD and LCX two years ago, moderate aortic stenosis, hypertension, diabetes presented to the ED with chief complaints of chest pain. Plan Plan Diffuse three-vessel CAD Unstable Angina Moderate-severe aortic stenosis S/p PCI of LAD and circumflex 2 years ago Due to Worsening shortness of breath and intermittent chest pain, had coronary angiogram done on 12/06/[address] Aguayo which revealed moderate disease in the LAD, diagonal, ramus and obtuse marginal. He also has moderate aortic stenosis with valve area approximately 1.17 cm2. Was recommended to be evaluated by Cardiac surgery for CABG, Troponins negative, H&H 13.6, 41 Continue aspirin 81 mg, atorvastatin 80, Zetia 10 mg Took his Plavix 75 mg yesterday, hold Plavix Dr. Malone following, appreciate recs, patient is going to have CABG with aortic valve replacement on Monday. Diabetes type 2 A1c 6.5 On hyper hypoglycemia protocol Hypertension on losartan Med req done Code Status: Full code DVT prophylaxis: Aspirin Analgesia/sedation: None Line/tube: PIV GI prophylaxis: None Nutrition: Heart healthy Prognosis: Guarded Disposition: Continue medical management. Adelaide Schmidt MD. IM Resident PGY-3 Date of Service: Dec 19, 2024 Billing Provider: RITA AMADOR MD Common Visit Codes: [id number] INP/OBS CARE(HIGH) ADELAIDE SCHMIDT, RES Dec 19, 2024 17:51 RITA AMADOR MD Dec 20, 2024 06:57
[2024-12-20] VITALS (8 sets, daily range): BP systolic 113–143; BP diastolic 61–88; PULSE 56–71; RESP 13–22; TEMP 97.2–97.7; O2SAT 93–98
[2024-12-20 07:02] LABS: MEAN PLATELET VOLUME 7.8 FL (7.4-10.4); RED CELL DISTRIBUTION WIDTH 15.5 % (11.5-14.5)
[2024-12-20 07:08] LABS: APTT 26 SECONDS (22-32); INR 1.1 INR
[2024-12-20 07:20] LABS: CREATININE 0.75 MG/DL (0.60-1.10); TOTAL CARBON DIOXIDE 29.7 MMOL/L (24-32); eCRCL 83 ML/MIN; eGFR > 90 ML/MIN
--- NOTE | 2024-12-20 09:07 | PROGRESS NOTE ---
Progress Note CV Providers to CC ~ Antibiotics Ordered?: No Objective Vitals Vital Signs Date Time Temp Pulse Resp B/P (MAP) Pulse Ox O2 Delivery O2 Flow Rate FiO2 12/20/24 02:00 97.4 59 13 143/63 (89) 93 Room Air 12/19/24 15:22 0 21 Lab Results: 12/20/24 0623 12/20/24 0623 Coagulation Studies Laboratory Tests Test 12/20/24 06:23 Prothrombin Time 11.0 SECONDS (9.0-12.0) INR International Normalized Ratio 1.1 INR Activated Partial Thromboplast Time 26 SECONDS (22-32) Coagulation Comments Cardiac Rhythm: Sinus Rhythm Problem\Assessment\Plan Additional Plan No overnight complaints. Preop studies reviewed. PFTs are good. Veins OK Carotids no significant stenosis Planning for AVR/CABG Monday. Supervising MD Co-signing Provider: RAISSA Arnold Dec 20, 2024 09:07
--- NOTE | 2024-12-20 16:19 | PROCEDURE NOTE - Respiratory ---
Procedure Note-Respiratory Providers to CC Copies To 1: CAROLINA POLANCO DO; JACKELYN MACK III, MD Procedure Name: This is a spirometry study dated December 19, 2024. Spirometry measurements: Both the forced vital capacity and the FEV1 measurements are normal. The FEV1 ratio is slightly elevated. The flow rate measurements are normal. Bronchodilator was not administered as part of the study. Conclusion: Normal spirometry study. We have no previous studies for comparison. KULWINDER JOHNSON MD Dec 20, 2024 16:19
--- NOTE | 2024-12-20 16:31 | PROGRESS NOTE- Residence ---
Progress Note - Resident Providers to CC Resident Creating Document: ADELAIDE SCHMIDT RES ~ Antibiotic Timeout Antibiotic Ordered?: No Subjective Patient seen and examined at bedside. Denies chest pain, dizziness, headaches or sob. He is scheduled for CABG with aortic valve replacement on Monday by Dr. Malone. No other concerns or complaints at this time. Objective Vital Signs Date Time Temp Pulse Resp B/P (MAP) Pulse Ox O2 Delivery O2 Flow Rate FiO2 12/20/24 15:00 97.2 69 16 113/61 (78) 96 Room Air 12/20/24 08:00 0.0 21 Result Diagram: 12/20/2462212/20/24622 General: Awake and Alert, no acute distress. HEENT: Conjunctiva pink, Sclera clear, Mucus Membranes moist. Neck: Supple without masses and tenderness. Resp: Unlabored. Equal breath sounds bilaterally. Heart: Regular rhythm, grade 3/6 systolic ejection murmur in the aortic area. Abdomen: Soft and non tender no organomegaly. Normal bowel sounds x4 quadrant normoactive. No guarding or rigidity. Extremities: Normal ROM, no swelling, nontender. No cyanosis,clubbing or edema. Musculoskeletal: Normal posture and gait. No joint swelling, deformity or tenderness, full range of motion and strength 5 x 5 in all extremities. 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 Skin: Warm and Dry. Coagulation Studies Laboratory Tests Test 12/20/24 06:23 Prothrombin Time 11.0 SECONDS (9.0-12.0) INR International Normalized Ratio 1.1 INR Activated Partial Thromboplast Time 26 SECONDS (22-32) Coagulation Comments Assessment Assessment 84-year-old male with history of CAD status post PCI of LAD and LCX two years ago, moderate aortic stenosis, hypertension, diabetes presented to the ED with chief complaints of chest pain. Plan Plan Diffuse three-vessel CAD Unstable Angina Moderate-severe aortic stenosis S/p PCI of LAD and circumflex 2 years ago Due to Worsening shortness of breath and intermittent chest pain, had coronary angiogram done on 12/06/[address] Aguayo which revealed moderate disease in the LAD, diagonal, ramus and obtuse marginal. He also has moderate aortic stenosis with valve area approximately 1.17 cm2. Was recommended to be evaluated by Cardiac surgery for CABG, Troponins negative, H&H 13.6, 41 Continue aspirin 81 mg, atorvastatin 80, Zetia 10 mg Took his Plavix 75 mg yesterday, hold Plavix, Nitro PRN for chest pain. Dr. Malone following, appreciate recs, patient is going to have CABG with aortic valve replacement on Monday. Diabetes type 2 A1c 6.5 On hyper hypoglycemia protocol Hypertension on losartan Med req done Code Status: Full code DVT prophylaxis: Aspirin Analgesia/sedation: None Line/tube: PIV GI prophylaxis: None Nutrition: Heart healthy Prognosis: Guarded Disposition: Continue medical management. Surgery on monday. Adelaide Schmidt MD. IM Resident PGY-3 Date of Service: Dec 20, 2024 Billing Provider: RITA AMADOR MD Common Visit Codes: [id number] INP/OBS CARE(HIGH) ADELAIDE SCHMIDT, RES Dec 20, 2024 16:31 RITA AMADOR MD Dec 21, 2024 07:55
[2024-12-21] VITALS (8 sets, daily range): BP systolic 11–133; BP diastolic 68–80; PULSE 68–78; RESP 12–21; TEMP 97.1–97.8; O2SAT 94–99
[2024-12-21 06:07] LABS: MEAN PLATELET VOLUME 8.0 FL (7.4-10.4); RED CELL DISTRIBUTION WIDTH 15.1 % (11.5-14.5)
[2024-12-21 06:24] LABS: APTT 22 SECONDS (22-32); INR 1.1 INR
[2024-12-21 06:32] LABS: CREATININE 0.72 MG/DL (0.60-1.10); TOTAL CARBON DIOXIDE 28.6 MMOL/L (24-32); eCRCL 86 ML/MIN; eGFR > 90 ML/MIN
--- NOTE | 2024-12-21 09:43 | PROGRESS NOTE ---
Progress Note CV Providers to CC ~ Central Line/PICC still needed: N\A Ashwini Indications Met/Not Met: F/C Indications Not Met Antibiotics Ordered?: No Subjective Subjective Patient remains chest pain free. No complaints this morning. Ready for surgery in a.m. Objective Vitals Vital Signs Date Time Temp Pulse Resp B/P (MAP) Pulse Ox O2 Delivery O2 Flow Rate FiO2 12/21/24 06:30 72 12/21/24 02:00 97.1 18 11/76 (55) 97 Room Air 12/20/24 20:00 0.0 21 Lab Results: 12/21/24 0502 12/21/24 0502 Objective Lungs fairly clear with good aeration throughout. Cardiac exam regular rate and rhythm with grade 2/6 systolic flow murmur at the upper left sternal border. S2 preserved. No S3 or S4 noted. Lower extremities free of edema. No tenderness Coagulation Studies Laboratory Tests Test 12/21/24 05:02 Prothrombin Time 10.9 SECONDS (9.0-12.0) INR International Normalized Ratio 1.1 INR Activated Partial Thromboplast Time 22 SECONDS (22-32) Coagulation Comments Cardiac Rhythm: Sinus Rhythm, Sinus Bradycardia Problem\Assessment\Plan Additional Plan Ready for CABG and AVR in a.m.. Risks, benefits and possible complications associated with the procedure were reviewed again with the patient. He reiterates that he understands and accepts these and requested that we proceed. All of his questions have been answered to his stated satisfaction. JACKELYN MACK III, MD Dec 21, 2024 09:43
--- NOTE | 2024-12-21 15:02 | PROGRESS NOTE- Residence ---
Progress Note - Resident Providers to CC Resident Creating Document: PRAVEEN VICTOR RES ~ Antibiotic Timeout Antibiotic Ordered?: No Subjective Patient seen and examined at bedside. Denies chest pain, dizziness, headaches or sob. He is scheduled for CABG with aortic valve replacement on Monday by Dr. Malone. No other concerns or complaints at this time. Objective Vital Signs Date Time Temp Pulse Resp B/P (MAP) Pulse Ox O2 Delivery O2 Flow Rate FiO2 12/21/24 08:00 19 98 Room Air 0.0 21 12/21/24 06:30 72 12/21/24 06:00 97.8 112/76 (88) Result Diagram: 12/21/24 0502 12/21/24 0502 General: Awake and Alert, no acute distress. HEENT: Conjunctiva pink, Sclera clear, Mucus Membranes moist. Neck: Supple without masses and tenderness. Resp: Unlabored. Equal breath sounds bilaterally. Heart: Regular rhythm, grade 3/6 systolic ejection murmur in the aortic area. Abdomen: Soft and non tender no organomegaly. Normal bowel sounds x4 quadrant normoactive. No guarding or rigidity. Extremities: Normal ROM, no swelling, nontender. No cyanosis,clubbing or edema. Musculoskeletal: Normal posture and gait. No joint swelling, deformity or tenderness, full range of motion and strength 5 x 5 in all extremities. 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 Skin: Warm and Dry. Coagulation Studies Laboratory Tests Test 12/21/24 05:02 Prothrombin Time 10.9 SECONDS (9.0-12.0) INR International Normalized Ratio 1.1 INR Activated Partial Thromboplast Time 22 SECONDS (22-32) Coagulation Comments Assessment Assessment 84-year-old male with history of CAD status post PCI of LAD and LCX two years ago, moderate aortic stenosis, hypertension, diabetes presented to the ED with chief complaints of chest pain. Plan Plan Diffuse three-vessel CAD Unstable Angina Moderate-severe aortic stenosis S/p PCI of LAD and circumflex 2 years ago Due to Worsening shortness of breath and intermittent chest pain, had coronary angiogram done on 12/06/[address] Aguayo which revealed moderate disease in the LAD, diagonal, ramus and obtuse marginal. He also has moderate aortic stenosis with valve area approximately 1.17 cm2. Was recommended to be evaluated by Cardiac surgery for CABG, Troponins negative, H&H 13.6, 41 Continue aspirin 81 mg, atorvastatin 80, Zetia 10 mg Patient not on Plavix, Nitro PRN for chest pain. Dr. Malone following, appreciate recs, patient is going to have CABG with aortic valve replacement on Monday. Diabetes type 2 A1c 6.5 On hyper hypoglycemia protocol Hypertension on losartan Med req done Code Status: Full code DVT prophylaxis: Aspirin Analgesia/sedation: None Line/tube: PIV GI prophylaxis: None Nutrition: Heart healthy Prognosis: Guarded Disposition: Continue medical management. Surgery on monday. Praveen Victor PGY-1 Date of Service: Dec 21, 2024 Billing Provider: RITA AMADOR MD Common Visit Codes: [id number] INP/OBS CARE(HIGH) PRAVEEN VICTOR, RES Dec 21, 2024 15:02 RITA AMADOR MD Dec 22, 2024 10:48
[2024-12-22] VITALS (25 sets, daily range): BP systolic 83–117; BP diastolic 46–79; PULSE 56–97; RESP 11–27; TEMP 95.3–97.3; O2SAT 91–98
[2024-12-22] MEDS ORDERED: ceFAZolin 2gm/dext,iso 50mL 50 ML IV ONE (05:30)
[2024-12-22] MEDS: Insulin Reg/NS 100units/100mL 100 ML IV SCH ×2 (05:30→16:12)
[2024-12-22] MEDS: VANCOMYCIN/H2O 1.5g/300mL PB 300 ML IV ONE (05:30)
[2024-12-22] MEDS ORDERED: insulin glargine (Lantus) pen - multi-dose SQ PRN ×2 (05:30→15:25)
[2024-12-22] MEDS ORDERED: dextrose 50%-water 50ml dispensing syringe IV PRN ×2 (05:30→15:25)
[2024-12-22] MEDS: ceFAZolin 2gm/dext,iso 50mL 50 ML IV ONE (05:30)
[2024-12-22 05:49] LABS: MEAN PLATELET VOLUME 8.1 FL (7.4-10.4); RED CELL DISTRIBUTION WIDTH 15.4 % (11.5-14.5)
[2024-12-22 05:55] LABS: INR 1.1 INR
[2024-12-22 06:01] LABS: CREATININE 0.74 MG/DL (0.60-1.10); TOTAL CARBON DIOXIDE 28.7 MMOL/L (24-32); eCRCL 84 ML/MIN; eGFR > 90 ML/MIN
[2024-12-22] MEDS: midazolam 1 mg/ML 2ml injection IV ONE (09:00)
[2024-12-22] MEDS ORDERED: potassium CL 10mEq/100ml bag 100 ML IV PRN ×2 (09:35→15:25)
[2024-12-22] MEDS ORDERED: magnesium sulf-water 2g/50mL 50 ML IV PRN (09:35)
[2024-12-22] MEDS ORDERED: magnesium sulf-water 4G/100mL 100 ML IV PRN ×2 (09:35→15:25)
[2024-12-22] MEDS ORDERED: potassium Cl 40MEQ/1/2NS 520ml 520 ML IV PRN ×2 (09:35→15:25)
[2024-12-22] MEDS ORDERED: potassium Cl 20 mEq SR tablet PO PRN ×2 (09:35→15:25)
[2024-12-22] MEDS ORDERED: potassium Cl 20mEq/100mL bag 100 ML IV PRN (09:35)
[2024-12-22] MEDS ORDERED: potassium Cl 40MEQ/270ML bag 250 ML IV PRN ×2 (09:35→15:25)
[2024-12-22] MEDS ORDERED: BUPIVAcaine 2.5mg/ml inj 50ml vial (contains preservative) ONE (10:23)
[2024-12-22] MEDS ORDERED: BUPIVAcaine 0.5% inj/PF 30 ML ONE (10:30)
[2024-12-22] MEDS ORDERED: MIDAZolam 1 MG/ML 5ML VIAL ONE (11:08)
[2024-12-22] MEDS ORDERED: SUfentanil 50mcg/ml 1ml amp IV ONE (11:08)
[2024-12-22] MEDS ORDERED: rocuronium 10mg/ml inj IV ONE ×3 (11:10→12:27)
[2024-12-22] MEDS ORDERED: propofol inj 20 ML IV ONE (11:13)
[2024-12-22] MEDS ORDERED: midazolam 1 mg/ML 2ml injection ONE (11:14)
[2024-12-22] MEDS ORDERED: potassium Cl 2 mEq/ml inj IV ONE (11:15)
[2024-12-22] MEDS ORDERED: calcium chloride 100 MG/1 ML inj IV ONE (11:15)
[2024-12-22] MEDS ORDERED: MAGNESIUM SULFATE 4 MEQ/ML (5gm/10ml) injection ONE (11:15)
[2024-12-22] MEDS ORDERED: heparin 1,000 units/ml 10ml inj ONE (11:15)
[2024-12-22] MEDS ORDERED: phenylephrine 10mg/ml inj. ONE (11:15)
[2024-12-22] MEDS ORDERED: mannitol 12.5gm/50mL VIAL IV ONE (11:15)
[2024-12-22] MEDS ORDERED: aminocaproic acid 250 MG/1 ML inj. ONE (11:15)
[2024-12-22] MEDS ORDERED: LIDOcaine 2% (20 mg/ml) 5ml cardiac syringe ONE (11:15)
[2024-12-22] MEDS ORDERED: sodium bicarbonate (8.4%) 1 mEq/ml syringe ONE (11:15)
[2024-12-22] MEDS ORDERED: albumin (human) 25% 100 ML IV solution IV ONE (11:15)
[2024-12-22] MEDS ORDERED: heparin 10,000 units/1 ML INJ ONE (11:15)
[2024-12-22] MEDS ORDERED: methylPREDNISolone sod succ 1000mg vial ONE (11:15)
[2024-12-22 11:58] LABS: ABG BASE EXCESS -0.9 mmol/L (-2.0-3.0); ABG HCO3 23.1 mmol/L (21.0-28.0); ABG OXYGEN SATURATION 98.8 % (94.0-98.0); ABG PCO2 36.2 mmHg (35.0-48.0); ABG PH 7.423 (7.350-7.450); ABG PO2 135.9 mmHg (83.0-108.0); CL (ABG) 104 mmol/L (98-107); FCOHb 0.5 % (0.5-1.5); FHHb 1.2 % (0.0-5.0); FMetHb 0.1 % (0.0-1.5); FO2Hb 98.2 % (94.0-98.0); GLUCOSE (ABG) 99 mg/dl (65-95); IONIZED CA (ABG) 1.16 mmol/L (1.15-1.33); K (ABG) 3.7 mmol/L (3.40-4.50); TOTAL HEMOGLOBIN 13.4 G/dl (13.5-17.5)
[2024-12-22] MEDS ORDERED: vancomycin 1,000mg inj ONE (12:32)
[2024-12-22 12:51] LABS: ABG BASE EXCESS 0.6 mmol/L (-2.0-3.0); ABG HCO3 24.0 mmol/L (21.0-28.0); ABG OXYGEN SATURATION 99.4 % (94.0-98.0); ABG PCO2 33.7 mmHg (35.0-48.0); ABG PH 7.471 (7.350-7.450); CL (ABG) 102 mmol/L (98-107); FCOHb 0.3 % (0.5-1.5); FHHb 0.6 % (0.0-5.0); FMetHb 0.1 % (0.0-1.5); FO2Hb 99.0 % (94.0-98.0); GLUCOSE (ABG) 97 mg/dl (65-95); IONIZED CA (ABG) 0.94 mmol/L (1.15-1.33); K (ABG) 3.5 mmol/L (3.40-4.50); TOTAL HEMOGLOBIN 9.0 G/dl (13.5-17.5)
[2024-12-22 12:52] LABS: ACTIVATED CLOTTING TIME 935.0 SEC (101-148)
[2024-12-22 13:23] LABS: ABG BASE EXCESS 0.7 mmol/L (-2.0-3.0); ABG HCO3 23.9 mmol/L (21.0-28.0); ABG OXYGEN SATURATION 99.5 % (94.0-98.0); ABG PCO2 31.8 mmHg (35.0-48.0); ABG PH 7.493 (7.350-7.450); CL (ABG) 104 mmol/L (98-107); FCOHb 0.2 % (0.5-1.5); FHHb 0.5 % (0.0-5.0); FMetHb 0.1 % (0.0-1.5); FO2Hb 99.2 % (94.0-98.0); GLUCOSE (ABG) 120 mg/dl (65-95); IONIZED CA (ABG) 0.86 mmol/L (1.15-1.33); K (ABG) 3.9 mmol/L (3.40-4.50); TOTAL HEMOGLOBIN 7.2 G/dl (13.5-17.5)
[2024-12-22 13:36] LABS: ACTIVATED CLOTTING TIME 740.0 SEC (101-148)
[2024-12-22 13:52] LABS: ABG BASE EXCESS -1.4 mmol/L (-2.0-3.0); ABG HCO3 22.4 mmol/L (21.0-28.0); ABG OXYGEN SATURATION 99.3 % (94.0-98.0); ABG PCO2 33.8 mmHg (35.0-48.0); ABG PH 7.440 (7.350-7.450); CL (ABG) 104 mmol/L (98-107); FCOHb 0.3 % (0.5-1.5); FHHb 0.7 % (0.0-5.0); FMetHb 0.3 % (0.0-1.5); FO2Hb 98.7 % (94.0-98.0); GLUCOSE (ABG) 124 mg/dl (65-95); IONIZED CA (ABG) 0.91 mmol/L (1.15-1.33); K (ABG) 4.7 mmol/L (3.40-4.50); TOTAL HEMOGLOBIN 8.0 G/dl (13.5-17.5)
[2024-12-22 14:06] LABS: ACTIVATED CLOTTING TIME 785.0 SEC (101-148)
[2024-12-22 14:20] LABS: ABG BASE EXCESS -0.9 mmol/L (-2.0-3.0); ABG HCO3 22.7 mmol/L (21.0-28.0); ABG OXYGEN SATURATION 99.2 % (94.0-98.0); ABG PCO2 33.0 mmHg (35.0-48.0); ABG PH 7.455 (7.350-7.450); CL (ABG) 104 mmol/L (98-107); FCOHb 0.3 % (0.5-1.5); FHHb 0.8 % (0.0-5.0); FMetHb 0.3 % (0.0-1.5); FO2Hb 98.6 % (94.0-98.0); GLUCOSE (ABG) 124 mg/dl (65-95); IONIZED CA (ABG) 0.89 mmol/L (1.15-1.33); K (ABG) 4.0 mmol/L (3.40-4.50); TOTAL HEMOGLOBIN 8.6 G/dl (13.5-17.5)
[2024-12-22 14:33] LABS: ACTIVATED CLOTTING TIME 710.0 SEC (101-148)
[2024-12-22 15:02] LABS: ABG BASE EXCESS 0.2 mmol/L (-2.0-3.0); ABG HCO3 25.4 mmol/L (21.0-28.0); ABG PCO2 44.2 mmHg (35.0-48.0); ABG PH 7.378 (7.350-7.450); CL (ABG) 105 mmol/L (98-107); FCOHb 0.5 % (0.5-1.5); FHHb 22.2 % (0.0-5.0); FMetHb 0.3 % (0.0-1.5); FO2Hb 77.0 % (94.0-98.0); GLUCOSE (ABG) 132 mg/dl (65-95); IONIZED CA (ABG) 1.03 mmol/L (1.15-1.33); K (ABG) 3.9 mmol/L (3.40-4.50); TOTAL HEMOGLOBIN 7.8 G/dl (13.5-17.5)
--- NOTE | 2024-12-22 15:04 | PROGRESS NOTE- Residence ---
Progress Note - Resident Providers to CC Resident Creating Document: PRAVEEN VICTOR RES ~ Antibiotic Timeout Antibiotic Ordered?: No Subjective Patient seen and examined at bedside. Denies chest pain, dizziness, headaches or sob. He is scheduled for CABG with aortic valve replacement today by Dr. Malone. No other concerns or complaints at this time. Objective Vital Signs Date Time Temp Pulse Resp B/P (MAP) Pulse Ox O2 Delivery O2 Flow Rate FiO2 12/22/24 08:00 15 98 Room Air 12/22/24 06:00 70 12/22/24 06:00 97.3 117/79 (92) 12/21/24 08:00 0.0 21 Result Diagram: 12/22/24 0505 12/22/24 0505 General: Awake and Alert, no acute distress. HEENT: Conjunctiva pink, Sclera clear, Mucus Membranes moist. Neck: Supple without masses and tenderness. Resp: Unlabored. Equal breath sounds bilaterally. Heart: Regular rhythm, grade 3/6 systolic ejection murmur in the aortic area. Abdomen: Soft and non tender no organomegaly. Normal bowel sounds x4 quadrant normoactive. No guarding or rigidity. Extremities: Normal ROM, no swelling, nontender. No cyanosis,clubbing or edema. Musculoskeletal: Normal posture and gait. No joint swelling, deformity or tenderness, full range of motion and strength 5 x 5 in all extremities. 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 Skin: Warm and Dry. Coagulation Studies Laboratory Tests Test 12/21/24 05:02 12/22/24 05:05 12/22/24 14:29 Activated Partial Thromboplast Time 22 SECONDS (22-32) Prothrombin Time 11.1 SECONDS (9.0-12.0) INR International Normalized Ratio 1.1 INR Coagulation Comments Heparin Level (COAG) 2.5 MG/KG Calculated Heparin Req (Hep Assay) 04943 UNITS Calculated Protamine Req (Hep Assay 227 MG Activated Clotting Time 710 SEC (101-148) H Assessment Assessment 84-year-old male with history of CAD status post PCI of LAD and LCX two years ago, moderate aortic stenosis, hypertension, diabetes presented to the ED with chief complaints of chest pain. Plan Plan Diffuse three-vessel CAD Unstable Angina Moderate-severe aortic stenosis S/p PCI of LAD and circumflex 2 years ago Due to Worsening shortness of breath and intermittent chest pain, had coronary angiogram done on 12/06/[address] Aguayo which revealed moderate disease in the LAD, diagonal, ramus and obtuse marginal. He also has moderate aortic stenosis with valve area approximately 1.17 cm2. Was recommended to be evaluated by Cardiac surgery for CABG, Troponins negative, H&H 13.6, 41 Continue aspirin 81 mg, atorvastatin 80, Zetia 10 mg Patient not on Plavix, Nitro PRN for chest pain. Dr. Malone following, appreciate recs, patient is going to have CABG with aortic valve replacement on Monday. 12/22- Patient has been taken for CABG today. Diabetes type 2 A1c 6.5 On hyper hypoglycemia protocol Hypertension on losartan Med req done Code Status: Full code DVT prophylaxis: Aspirin Analgesia/sedation: None Line/tube: PIV GI prophylaxis: None Nutrition: Heart healthy Prognosis: Guarded Disposition: Continue medical management. Patient taken for CABG today in the morning. Praveen Victor PGY-1 Date of Service: Dec 22, 2024 Billing Provider: RITA AMADOR MD Common Visit Codes: [id number] INP/OBS CARE(MOD) PRAVEEN VICTOR, RES Dec 22, 2024 15:03 RITA AMADOR MD Dec 23, 2024 06:49
[2024-12-22 15:05] LABS: ACTIVATED CLOTTING TIME 110 SEC (101-148)
[2024-12-22] MEDS ORDERED: albumin (Human) 5% 250ml 250 ML IV ONE ×2 (15:08)
[2024-12-22] MEDS ORDERED: nitroGLYCERIN-Tridil 50MG/D5W 250 ML IV PRN ×2 (15:25→15:44)
[2024-12-22] MEDS ORDERED: mineral oil 133ml enema RC PRN (15:25)
[2024-12-22] MEDS ORDERED: sodium phos 15mmol/D5 255mL 255 ML IV PRN (15:25)
[2024-12-22] MEDS ORDERED: niCARDipine-NS 40mg/200ml IVPB 200 ML IV PRN (15:25)
--- NOTE | 2024-12-22 15:39 | OPERATIVE REPORT ---
Operative Report Operative Report Cardiovascular surgery operative report 21 December 2024 Preoperative diagnosis: Severe three-vessel coronary disease, moderate aortic stenosis, preoperative Plavix Postop diagnosis: Same Procedure: Coronary artery bypass grafting x4 placing reverse saphenous vein grafts to the obtuse marginal, the ramus and the right posterior descending coronary artery, left internal mammary artery to the LAD; AVR with a 25 mm magna ease pericardial aortic valve prosthesis Surgeon: Dr. Yo Malone sales assistant entertainment and media: Dr. Fernie Orellana and Damian Guzman PA-C Anesthesia: General via endotracheal tube Dr. Storey Complications: None EBL: 200 mL Procedure: The patient is taken to the operating room placed in supine position. Following the induction of general oral endotracheal anesthesia and the placement of appropriate lines the chest, abdomen and bilateral lower extremities were prepped and draped sterilely. The greater saphenous vein was removed from the right leg endoscopically. Side branches were controlled with electrocautery. It was ligated proximally and distally and then excised. It was flushed with heparinized blood and side branches ligated with 4-0 silk. It was set aside. Careful hemostasis was achieved throughout this tunnel which was irrigated with antibiotic solution. The incision was closed in two layers with absorbable suture. At the same time a median sternotomy was performed in the left pleural space was widely opened. The left internal mammary artery was then dissected free from the anterior chest wall. The patient was systemically heparinized and after 3 minutes the GONZALEZ was divided the diaphragm, ligating it distally with 0 silk. The pericardium was opened in midline and suspended. Single aortic and right atrial cannula placed for cardiopulmonary bypass. After ensuring an ACT of greater than 300 seconds cardiopulmonary bypass was instituted. The distal anastomosis with a bypasses were performed on a beating heart using the cardiopulmonary bypass for hemodynamic support. An epicardial stabilizer was utilized to facilitate the distal anastomosis. Each anastomosis was done end-to-side fashion using running seven 0 Prolene. In this manner reverse saphenous vein grafts were anastomosed to the ramus, the obtuse marginal which was a very small 1 mm vessel as well as to the right posterior descending. A slit was then cut in the left superior pericardium to allow the GONZALEZ tied medial to the lung. It was cut to length and distal end was spatulated. It was then anastomosed in end-to-side fashion to the distal 3rd of the LAD. The pedicle was tacked to the epicardium with interrupted five 0 Prolene sutures. The bulldog clamp was left on the pedicle at this point. The aorta was then crossclamped and the heart was arrested with a cold blood [place] cardioplegia delivered antegrade through the aortic root. The ascending aorta was opened transversely well above the right coronary orifice and the valve was inspected. It was a tricuspid valve with extensive calcification of the annulus in the left and non coronary cusp was corresponding to mitral annular calcification. The right was much less calcified but still fairly extensive. The leaflets were excised and the annulus was debrided free of calcium. Extensive calcium on the anterior leaf of the mitral valve was also removed as feasible. The annulus was then sized and a 25 mm magna ease pericardial aortic valve prosthesis was chosen. This was rinsed per protocol. It was then implanted into the annulus using interrupted horizontal mattress sutures of pledgeted 2-0 Ethibond, placing the pledgets on the ventricular aspect. The sutures were then placed through the sewing ring of the valve and the valve was seated. The sutures were then tied to complete the implant. The ascending aorta was copiously irrigated with cold saline solution. The aortotomy was closed with a everting running 4-0 Prolene suture. The suture line was then coate with a thin layer of BioGlue for hemostatic purposes. Three aortotomies were created in the ascending aorta with a 4 mm punch. This allowed the proximal anastomosis with the vein grafts to be performed. Each was done in end-to-side fashion with running six 0 Prolene. Proximal markers were placed. The patient was given 1 L of warm blood antegrade while temporary pacing wires placed the anterior surface of the right ventricle and right atrium. With a suction vent in the ascending aorta on high the aortic crossclamp was removed. The vein grafts were de-aired and flow was restored to the entire coronary circulation. Ventilation was resumed. The patient was allowed to begin ejecting to a pressure of 80-90 millimeter of mercury pressure while transesophageal echocardiography was used to confirm adequacy of de- airing. At that point he was weaned from cardiopulmonary bypass and decannulated in standard fashion. Protamine solution was administered to reverse heparinization as well as one platelet pack. Careful hemostasis was achieved throughout the mediastinum. Flow probes were used to interrogate the grafts. The PDA and ramus grafts had excellent flows with pulsatile indices of less than three. The graft to the obtuse marginal had a flow of 15-20 mL/minute but PI of seven. This was felt to be secondary to the very small size of the vessel. Doppler interrogation showed excellent flow through the mammary as well as excellent diastolic flow through the graft to the OM. The pericardial fat was loosely approximated in the midline with interrupted 2-0 Ethibond, taking care of her kinking or compression of the underlying grafts. A 28 Samoan drain was placed in the left pleural space with a 32 Samoan straight chest tube placed anterior to the mediastinum. These were both secured to skin with 1. Silk. The chest was then closed by reapproximating the sternum in midline with interrupted [id number] of 7. Stainless steel wire in concert with zip fix sternal bands. The midline fascia, subcutaneous tissue and skin were closed in layers. Sterile dressings were applied and the chest tube was attached to water-seal. The patient is then returned to the ICU in critical but stable condition, having tolerated the procedure satisfactorily. There were no complications. Sponge, needle and instrument counts were correct x2 at the end of the case. Damian Guzman PA-C was present for and assisted throughout the entire procedure. YO MALONE III, MD Dec 22, 2024 15:39
[2024-12-22 15:47] LABS: MEAN PLATELET VOLUME 7.3 FL (7.4-10.4); RED CELL DISTRIBUTION WIDTH 15.0 % (11.5-14.5)
--- NOTE | 2024-12-22 16:06 | RADIOLOGY REPORT ---
EXAM: DI CHEST,SINGLE VIEW HISTORY: POST OP TECHNIQUE: 1 view of the chest COMPARISON: CT CT CHEST on DOS: 12/19/24 FINDINGS/IMPRESSION: LUNGS: Low lung volumes, which cause crowding of the bronchovascular markings. Peripheral interstitial edema. MEDIASTINUM: Mild cardiomegaly. Sternotomy wires. Right-sided [place]-Justen catheter with distal tip of the right main pulmonary artery. Enteric tube in the proximal stomach. Right central venous catheter distal tip at the cavoatrial junction. Suspected mediastinal drain. BONES: Postoperative changes related to recent sternotomy OTHER: Endotracheal tube 4.5 cm above the nancy.
[2024-12-22 16:10] LABS: APTT 35 SECONDS (22-32); INR 1.6 INR
[2024-12-22] MEDS: albumin (Human) 5% 250ml 250 ML IV PRN (16:11)
[2024-12-22 16:13] LABS: ABG BASE EXCESS -2.6 mmol/L (-2.0-3.0); ABG HCO3 22.4 mmol/L (21.0-28.0); ABG OXYGEN SATURATION 95.0 % (94.0-98.0); ABG PCO2 (T) 36.8 mmHg (35.0-48.0); ABG PH (T) 7.394 (7.350-7.450); ABG PO2 (T) 77.3 mmHg (83.0-108.0); FCOHb 1.4 % (0.5-1.5); FHHb 4.9 % (0.0-5.0); FIO2 80.0 mmHg/%; FMetHb 0.3 % (0.0-1.5); FO2Hb 93.4 % (94.0-98.0); MODE VENT - SIMV VC; PATIENT TEMPERATURE 35.4; PEEP 5 cm H2O; RESPIRATORY RATE 14 b/min; TIDAL VOLUME 500 mL; TOTAL HEMOGLOBIN 7.5 G/dl (13.5-17.5)
[2024-12-22 16:29] LABS: MEAN PLATELET VOLUME 7.3 FL (7.4-10.4); RED CELL DISTRIBUTION WIDTH 15.2 % (11.5-14.5)
[2024-12-22 16:34] LABS: CREATININE 0.59 MG/DL (0.60-1.10); PHOSPHORUS 2.5 MG/DL (2.3-4.5); TOTAL CARBON DIOXIDE 24.8 MMOL/L (24-32); eCRCL 105 ML/MIN; eGFR > 90 ML/MIN
[2024-12-22] MEDS: NORepinephrine 8mg/ 250ml NS 250 ML IV PRN (16:42)
[2024-12-22] MEDS: magnesium sulf-water 2g/50mL 50 ML IV PRN (17:10)
[2024-12-22] MEDS: potassium Cl 20mEq/100mL bag 100 ML IV PRN (17:11)
--- NOTE | 2024-12-22 18:00 | CARDIOLOGY REPORT ---
APPROVED REPORT EXAM: Comprehensive 2D, Doppler, and color-flow Echocardiogram. Patient Location: 3028 A Heart Rate: 60's bpm Rhythm: SINUS Indications PRE OP STENT x2 2022 KNOWN SEVERE Hand Cutter Apprentice: Lorraine PATINO MD Previous echo: NONE AVAILABLE (AFTER HOURS) 2D Dimensions IVSd 1.4 (0.7-1.1cm) LVDd 4.0 cm PWd 1.4 (0.7-1.1cm) IVSs 1.6 (0.8-1.2cm) LVDs 2.5 (2.5-4.0cm) PWs 1.6 (0.8-1.2cm) LVOT Diameter 1.94 (1.8-2.4cm) LVEF(%) 67.2 (>50%) FS (%) 36.8 % SV 48.9 ml CO 3.2 L/min M-Mode Dimensions Aortic Root 3.41 (2.2-3.7cm) Aortic Valve AoV Peak Jatinder. 2.8 cm/s AoV VTI 46.5 cm AO Peak GR. 34.7 mmHg AO Mean GR. 20 mmHg LVOT VTI 17.44 cm LVOT Peak Jatinder. 112.0 cm/s NBA(VTI)/BSA 1.11 cm2/m2 NBA (VTI) 1.11 cm2 AV DI 0.38 % Mitral Valve MV E Velocity 58.8 cm/s MV Peak Gr. 9 mmHg MV DECEL TIME 276 ms MV A Velocity 142.4 cm/s MV Mean Gr. 2 mmHg E/A Ratio 0.4 MV VMax 145.9 cm/s MV VMean 64.5 cm/s MVA VTI 1.57 cm2 MV VTI 32.9 cm Tricuspid Valve TR P. Velocity 166 cm/s RAP ESTIMATE 10 mmHg TR Peak Gr. 11 mmHg RVSP 21 mmHg LEFT VENTRICLE Normal LV size with hyperdynamic function. Moderate concentric hypertrophy. LVEF is 70-75%. RIGHT VENTRICLE RV appears normal size and function. ATRIA The left atrium size appears normal. TDS AORTIC VALVE Trileaflet AV appears moderately sclerotic with moderate stenosis. NBA: 1.11 cmsq; Pkv: 285 m/sec; Gradients: 35/20 mmHG. Mild insufficiency. Measurements are multi sampled averages due to poor Doppler angles and to lack of adequate imaging windows, quantitative data must be clinically correlated. TDS MITRAL VALVE Mild MV annular calcification with mild stenosis. MVA: 1.57 cmsq; Gradients: 9/2 mmHG.Trace regurgitation. TDS TRICUSPID VALVE TV appears structurally normal with trace regurgitation. TDS PULMONIC VALVE Normal PV without stenosis, physiologic insufficiency. GREAT VESSELS The aortic root is normal in size. PERICARDIUM Normal pericardium. No effusion. Other Information Study Quality: Technically Difficult due to poor imaging windows and poor Doppler angles. No subcostal window Conclusion Normal LV size with hyperdynamic function. Moderate concentric hypertrophy. LVEF is 70-75%. RV appears normal size and function. The left atrium size appears normal. TDS Trileaflet AV appears moderately sclerotic with moderate stenosis. NBA: 1.11 cmsq; Pkv: 285 m/sec; Gradients: 35/20 mmHG. Mild insufficiency. Measurements are multi sampled averages due to poor Doppler angles and to lack of adequate imaging windows, quantitative data must be clinically correlated. TDS Mild MV annular calcification with mild stenosis. MVA: 1.57 cmsq; Gradients: 9/2 mmHG.Trace regurgitation. TDS TV appears structurally normal with trace regurgitation. TDS Normal pericardium. No effusion.
[2024-12-22] MEDS: ceFAZolin/D5W- 1GM premix 50 ML IV SCH (19:20)
[2024-12-22 19:32] LABS: MEAN PLATELET VOLUME 7.6 FL (7.4-10.4); RED CELL DISTRIBUTION WIDTH 15.3 % (11.5-14.5)
[2024-12-22] MEDS: vancomycin/NS 1 GM ADD-VANTAGE 250 ML IV SCH (19:53)
[2024-12-22] MEDS: mupirocin 2% nasal ointment 1gm UD NS SCH (19:53)
[2024-12-22 19:55] LABS: CREATININE 0.80 MG/DL (0.60-1.10); PHOSPHORUS 3.9 MG/DL (2.3-4.5); TOTAL CARBON DIOXIDE 20.0 MMOL/L (24-32); eCRCL 78 ML/MIN; eGFR > 90 ML/MIN
[2024-12-22] MEDS: albumin (Human) 5% 250ml 250 ML IV ONE ×2 (20:32→23:03)
[2024-12-22] MEDS: dexmedetomidin/NS 400mcg/100ml 100 ML IV PRN (21:00)
[2024-12-22 21:16] LABS: ABG BASE EXCESS -6.6 mmol/L (-2.0-3.0); ABG HCO3 17.7 mmol/L (21.0-28.0); ABG OXYGEN SATURATION 97.3 % (94.0-98.0); ABG PCO2 (T) 29.0 mmHg (35.0-48.0); ABG PH (T) 7.398 (7.350-7.450); ABG PO2 (T) 95.7 mmHg (83.0-108.0); FCOHb 1.3 % (0.5-1.5); FHHb 2.7 % (0.0-5.0); FIO2 40.0 mmHg/%; FMetHb 0.3 % (0.0-1.5); FO2Hb 95.7 % (94.0-98.0); MODE VENT - CPAP; PATIENT TEMPERATURE 36.1; PEEP 5 cm H2O; TOTAL HEMOGLOBIN 7.8 G/dl (13.5-17.5)
[2024-12-22] MEDS: morphine 4 MG/ML inj SYRINge IV PRN (23:13)
[2024-12-23] VITALS (25 sets, daily range): BP systolic 95–129; BP diastolic 48–70; PULSE 60–79; RESP 12–24; O2SAT 90–98
[2024-12-23] MEDS: ondansetron/PF 4mg/2ml inj IV PRN (01:03)
[2024-12-23] MEDS: HYDROcodone/acetaminophen 10/325mg tab PO PRN (01:31)
[2024-12-23 02:04] LABS: MEAN PLATELET VOLUME 7.9 FL (7.4-10.4); RED CELL DISTRIBUTION WIDTH 15.2 % (11.5-14.5)
[2024-12-23 02:18] LABS: CREATININE 0.81 MG/DL (0.60-1.10); PHOSPHORUS 1.3 MG/DL (2.3-4.5); TOTAL CARBON DIOXIDE 25.5 MMOL/L (24-32); eCRCL 77 ML/MIN; eGFR > 90 ML/MIN
[2024-12-23] MEDS: SODIUM PHOSPHATE IN D5W 250 ML IV ONE (02:42)
[2024-12-23] MEDS: SODIUM PHOSPHATE IN D5W 260 ML IV PRN (02:42)
[2024-12-23] MEDS: niCARDipine-NS 40mg/200ml IVPB 200 ML IV PRN (04:32)
[2024-12-23 05:33] LABS: MEAN PLATELET VOLUME 8.0 FL (7.4-10.4); RED CELL DISTRIBUTION WIDTH 15.0 % (11.5-14.5)
--- NOTE | 2024-12-23 06:27 | RADIOLOGY REPORT ---
CHEST RADIOGRAPH Indication: POST OP Technique: Single frontal view of the chest was obtained Comparison: DI CHEST,SINGLE VIEW on DOS: 12/22/24 FINDINGS: Lines and Tubes: There is a right central venous catheter with its tip terminating in the superior vena cava. Right [place]-Justen catheter tip terminates in the region of the main pulmonary artery. The endotracheal and enteric tube have been removed. Mediastinal chest drain is unchanged. Left chest tube. Lungs: Low lung volumes, which cause crowding of the bronchovascular markings. Peripheral interstitial edema. Pleura: No effusion. No pneumothorax. Cardiomediastinal contours: Cardiomegaly. Bones: No acute osseous abnormality. IMPRESSION: 1. Interval removal of the endotracheal and enteric tubes. 2. Cardiomegaly and pulmonary edema.
[2024-12-23 07:46] LABS: ACT @ 1.70 U 339 SEC (193-297); ACT @ 2.84 U 491 SEC (260-420); BASELINE ACT 158 SEC (101-148); PATIENT WEIGHT 94.0k KG
--- NOTE | 2024-12-23 07:47 | PROGRESS NOTE ---
Progress Note CV Providers to CC ~ Antibiotics Ordered?: No Subjective Subjective S/P AVR, CABG X 4 POD # 1. Alert, tired. Says he didn't sleep well last night d/t noise and nurses checking on him. Pain is controlled. Currently A. paced at 80, Objective Vitals Vital Signs Date Time Temp Pulse Resp B/P (MAP) Pulse Ox O2 Delivery O2 Flow Rate FiO2 12/23/24 07:00 97.3 79 12 119/65 (82) 96 High Flow Nasal Cannula 6.0 12/22/24 22:05 36 Lab Results: 12/23/24 0520 12/23/24 0150 Objective Lungs - diminished at bases bilat Heart - RRR, paced Abd/Extr - OK Incisions - CDI dsgs Coagulation Studies Laboratory Tests Test 12/22/24 15:10 12/22/24 15:25 Heparin Level (COAG) 0 MG/KG Calculated Heparin Req (Hep Assay) 38410 UNITS Calculated Protamine Req (Hep Assay 0 MG Activated Clotting Time 110 SEC (101-148) Prothrombin Time 15.3 SECONDS (9.0-12.0) H INR International Normalized Ratio 1.6 INR Activated Partial Thromboplast Time 35 SECONDS (22-32) H Fibrinogen 239 MG/DL (177-424) Coagulation Comments Coagulation Clinical Comments Cardiac Rhythm: A Paced Problem\Assessment\Plan Additional Plan POD # 1 CI 2.0 2 10 pack platelets yesterday and one unit PRBC's platelets 95k and Hgb 8.3 Mobilize, advance diet. DC art line and swan. Sepsis Screening Reassessment Date: Dec 23, 2024 Supervising Co-signing Provider: RAISSA Arnold Dec 23, 2024 07:47
[2024-12-23] MEDS: metoprolol tartrate 12.5mg (1/2 tablet) PO SCH (07:55)
[2024-12-23 08:08] LABS: ABG PO2 429.3 mmHg (83.0-108.0)
[2024-12-23 08:09] LABS: ABG PO2 462.3 mmHg (83.0-108.0)
[2024-12-23 08:10] LABS: ABG PO2 430.8 mmHg (83.0-108.0)
[2024-12-23 08:10] LABS: ABG PO2 458.4 mmHg (83.0-108.0)
[2024-12-23 08:11] LABS: ABG OXYGEN SATURATION 77.6 % (94.0-98.0); ABG PO2 44.0 mmHg (83.0-108.0)
--- NOTE | 2024-12-23 09:04 | ELECTROCARDIOGRAPH REPORT ---
[facility] Test Date: 2024-12-23 Test Time: 06:45:54 Pat Name: LUTHER PENN Department: [facility] 2S Room: [place] [address] Gender: M Seo Coordinator: : 1940 Requested By: JACKELYN MACK Order Number: [id number] Reading MD: Dr. MAYTE Diaz Measurements Intervals [place] Rate: 79 P: 0 IN: 147 QRS: 21 QRSD: 95 T: -75 QT: 452 QTc: 519 Interpretive Statements Atrial-paced rhythm Nonspecific T abnormalities, diffuse leads Prolonged QT interval Electronically Signed On 12-24-2024 18:49:[address] MAYTE Diaz Please click the below link to view image of tracing.
[2024-12-23] MEDS ORDERED: OLME5TAB32 PO (13:58)
--- NOTE | 2024-12-23 18:31 | CARDIOLOGY REPORT ---
APPROVED REPORT EXAM: Intraoperative 2D and 3D transesophageal echocardiogram with spectral and color flow Doppler. Study contains pre- and post-op images. Patient Location: CVOR Blood Pressure: 157/93 mmHg Heart Rate: 70's bpm Rhythm: SINUS Indications CORONARY ARTERY DISEASE AORTIC STENOSIS CABG x 4 23 MM FRENCH PERIMOUNT MAGNA EASE BIOPROSTHETIC AVR STENT x 2 2022 ALYSSA PROBE PASSED BY: Amita VILLARREAL MD Machine Stone Polisher: Lorraine PATINO MD / CV SURGEON: Alec MACK Previous echo: [facility] 12/21/2024 EF 70-75%, NBA: 1.11, GRAD: 35/20, PK V: 2.85, Jorge, modLVH, trTR, trMR, MVA: 1.57, GRAD: 9/2, PK V: 146 LEFT VENTRICLE PRE: Normal LV size and function. Moderate concentric hypertrophy. LVEF is 70- 75%. POST-OP: Unchanged. RIGHT VENTRICLE PRE: RV appears at least mildly dilated in size with normal function. POST-OP: Unchanged. ATRIA PRE: Left atrium appears moderately dilated. Left atrial appendage is visualized in multiple planes and appears normal without debris. Left upper pulmonary vein identified and isolated by 2D and color Doppler. POST-OP: Unchanged. AORTIC VALVE PRE: Trileaflet AV appears mildly sclerotic with mild stenosis. NBA: 1.4 cmsq; Pkv: 2.85 m/sec; Gradients: 32/15 mmHG. Mild insufficiency. Measurements are multi sampled averages due to poor Doppler angles, quantitative data must be clinically correlated. POST-OP: 25 mm [place]im[place] Magna Ease appears well seated with trivial PVL. Pkv: 2.62 m/sec; Grad: 27/17 mmHg. MITRAL VALVE PRE: Mild MV annular calcification with mild stenosis. Pkv: 1.40 m/sec; Gradients: 8/3 mmHG. Trace regurgitation. POST-OP: Mild MV annular calcification with mild stenosis. Pkv: 1.40 m/sec; Gradients: 8/3 mmHG. Mild regurgitation. POST-OP: MV stenosis not evaluated, otherwise unchanged. TRICUSPID VALVE PRE: TV appears structurally normal with trace regurgitation. POST-OP: Unchanged. PULMONIC VALVE PRE: Normal PV without stenosis, physiologic, insufficiency. [place]-Justen catheter in the right heart across the pulmonic valve. POST-OP: Unchanged. GREAT VESSELS PRE: Aortic root is mildly dilated, at 4.3 cm. 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 POST-OP: Unchanged. PERICARDIUM PRE: Normal pericardium. No effusion. POST-OP: Unchanged. CONCLUSION PRE: Normal LV size and function. Moderate concentric hypertrophy. LVEF is 70- 75%. POST-OP: Unchanged. PRE: RV appears at least mildly dilated in size with normal function. POST-OP: Unchanged. PRE: Left atrium appears moderately dilated. Left atrial appendage is visualized in multiple planes and appears normal without debris. Left upper pulmonary vein identified and isolated by 2D and color Doppler. POST-OP: Unchanged. PRE: Trileaflet AV appears mildly sclerotic with mild stenosis. NBA: 1.4 cmsq; Pkv: 2.85 m/sec; Gradients: 32/15 mmHG. Mild insufficiency. Measurements are multi sampled averages due to poor Doppler angles, quantitative data must be clinically correlated. POST-OP: 25 mm French Perimount Magna Ease appears well seated with trivial PVL. Pkv: 2.62 m/sec; Grad: 27/17 mmHg. PRE: Mild MV annular calcification with mild stenosis. Pkv: 1.40 m/sec; Gradients: 8/3 mmHG. Trace regurgitation. POST-OP: Mild MV annular calcification with mild stenosis. Pkv: 1.40 m/sec; Gradients: 8/3 mmHG. Mild regurgitation. POST-OP: MV stenosis not evaluated, otherwise unchanged. PRE: TV appears structurally normal with trace regurgitation. POST-OP: Unchanged. PRE: Normal PV without stenosis, physiologic, insufficiency. [place]- Justen catheter in the right heart across the pulmonic valve. POST-OP: Unchanged. 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 POST-OP: Unchanged. PRE: Normal pericardium. No effusion. POST-OP: Unchanged. Conclusion PRE: Normal LV size and function. Moderate concentric hypertrophy. LVEF is 70- 75%. POST-OP: Unchanged. PRE: RV appears at least mildly dilated in size with normal function. POST-OP: Unchanged. PRE: Left atrium appears moderately dilated. Left atrial appendage is visualized in multiple planes and appears normal without debris. Left upper pulmonary vein identified and isolated by 2D and color Doppler. POST-OP: Unchanged. PRE: Trileaflet AV appears mildly sclerotic with mild stenosis. NBA: 1.4 cmsq; Pkv: 2.85 m/sec; Gradients: 32/15 mmHG. Mild insufficiency. Measurements are multi sampled averages due to poor Doppler angles, quantitative data must be clinically correlated. POST-OP: 25 mm French Perimount Magna Ease appears well seated with trivial PVL. Pkv: 2.62 m/sec; Grad: 27/17 mmHg. PRE: Mild MV annular calcification with mild stenosis. Pkv: 1.40 m/sec; Gradients: 8/3 mmHG. Trace regurgitation. POST-OP: Mild MV annular calcification with mild stenosis. Pkv: 1.40 m/sec; Gradients: 8/3 mmHG. Mild regurgitation. POST-OP: MV stenosis not evaluated, otherwise unchanged. PRE: TV appears structurally normal with trace regurgitation. POST-OP: Unchanged. PRE: Normal PV without stenosis, physiologic, insufficiency. [place]-Justen catheter in the right heart across the pulmonic valve. POST-OP: Unchanged. 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 POST-OP: Unchanged. PRE: Normal pericardium. No effusion. POST-OP: Unchanged.
[2024-12-24] VITALS (23 sets, daily range): BP systolic 99–126; BP diastolic 56–76; PULSE 61–80; RESP 8–18; TEMP 97.2–98.6; O2SAT 92–100
[2024-12-24 01:56] LABS: CREATININE 0.74 MG/DL (0.60-1.10); PHOSPHORUS 2.5 MG/DL (2.3-4.5); TOTAL CARBON DIOXIDE 28.8 MMOL/L (24-32); eCRCL 84 ML/MIN; eGFR > 90 ML/MIN
[2024-12-24 02:15] LABS: MEAN PLATELET VOLUME 8.7 FL (7.4-10.4); RED CELL DISTRIBUTION WIDTH 15.5 % (11.5-14.5)
--- NOTE | 2024-12-24 05:49 | RADIOLOGY REPORT ---
CHEST RADIOGRAPH Indication: POST OP Technique: Single frontal view of the chest was obtained COMPARISON: DI CHEST,SINGLE VIEW on DOS: 12/23/24, DI CHEST,SINGLE VIEW on DOS: 12/22/24, CT CT CHEST on DOS: 12/19/24, DI CHEST,TWO VIEWS on DOS: 12/19/24, DI CHEST,SINGLE VIEW on DOS: 12/18/24 FINDINGS: Lines and Tubes: Interval removal of right subclavian swan-Justen catheter. Right internal jugular central venous catheter unchanged. Lungs: Stable appearing mild diffuse increased prominence of the pulmonary vasculature without evidence of focal consolidation. Pleura: No effusion. No pneumothorax. Cardiomediastinal contours: Cardiomegaly. Bones: Unremarkable IMPRESSION: 1. Interval removal of right subclavian [place]-Justen catheter. Right IJ catheter unchanged. 2. Stable cardiomegaly and mild diffuse increased prominence of the pulmonary vasculature.
[2024-12-24] MEDS: pantoprazole 40mg Tablet.DR PO SCH (08:25)
--- NOTE | 2024-12-24 08:41 | PROGRESS NOTE ---
Progress Note CV Providers to CC ~ Antibiotics Ordered?: No Subjective Subjective S/P AVR/ CABG x 4 POD # 2. Alert, again didn't rest well last night d/t interruptions. Very sore. No appetite. Nauseated, just rec'd some Zofran. Objective Vitals Vital Signs Date Time Temp Pulse Resp B/P (MAP) Pulse Ox O2 Delivery O2 Flow Rate FiO2 12/24/24 08:25 70 12/24/24 08:21 18 92 Nasal Cannula* 5 40 12/24/24 07:00 110/64 (79) 12/23/24 21:00 97.7 Lab Results: 12/24/24 0125 12/24/24 0125 Objective Lungs - diminished at bases Heart - RRR, SR Abd/Extr - OK Incisions - CDI dsgs CT output slowing, serous. Coagulation Studies Laboratory Tests Test 12/22/24 12:06 12/22/24 15:10 12/22/24 15:25 Patient Sex (Coag) M Patient Height (Coag) 185cm Patient Weight (Coag) 94.0k KG Patient Blood Volume 6840 ML Pump Volume 1500 ML Total Blood Volume 8340 ML Projected Heparin Concentration 1.7 MG/KG Heparin [place] 136 Calculated Heparin Bolus 72047 UNITS Activated Coagulation Time Baseline 158 SEC (101-148) H Activated Coag Time 1.70 U/mL 339 SEC (193-297) H Activated Coag Time 2.84 U/mL 491 SEC (260-420) H Heparin Level (COAG) 0 MG/KG Calculated Heparin Req (Hep Assay) 19011 UNITS Calculated Protamine Req (Hep Assay 0 MG Activated Clotting Time 110 SEC (101-148) Prothrombin Time 15.3 SECONDS (9.0-12.0) H INR International Normalized Ratio 1.6 INR Activated Partial Thromboplast Time 35 SECONDS (22-32) H Fibrinogen 239 MG/DL (177-424) Coagulation Comments Coagulation Clinical Comments Cardiac Rhythm: Sinus Rhythm Problem\Assessment\Plan Additional Plan POD # [address] and PW's Ambulate. Encourage PO intake as tolerated. To PCU. Sepsis Screening Reassessment Date: Dec 24, 2024 Supervising Co-signing Provider: RAISSA Arnold Dec 24, 2024 08:41
[2024-12-24] MEDS ORDERED: potassium Cl 20 mEq SR tablet PO PRN (08:45)
[2024-12-24] MEDS ORDERED: magnesium sulf-water 4G/100mL 100 ML IV PRN (08:45)
[2024-12-24] MEDS ORDERED: potassium CL 10mEq/100ml bag 100 ML IV PRN (08:45)
[2024-12-24] MEDS ORDERED: potassium Cl 20mEq/100mL bag 100 ML IV PRN (08:45)
[2024-12-24] MEDS ORDERED: magnesium sulf-water 2g/50mL 50 ML IV PRN (08:45)
[2024-12-24] MEDS ORDERED: potassium Cl 40MEQ/1/2NS 520ml 520 ML IV PRN (08:45)
[2024-12-24] MEDS ORDERED: potassium Cl 40MEQ/270ML bag 250 ML IV PRN (08:45)
[2024-12-24] MEDS: metoclopramide 5 mg/ml inj IV PRN (13:19)
[2024-12-24] MEDS: Ensure Enlive - 237ML PO SCH (13:23)
[2024-12-24] MEDS: magnesium Cl slow-release 64mg tablet PO SCH (20:00)
[2024-12-25] VITALS (9 sets, daily range): BP systolic 106–152; BP diastolic 65–81; PULSE 72–163; RESP 15–24; TEMP 97.5–98.7; O2SAT 93–97
--- NOTE | 2024-12-25 06:49 | RADIOLOGY REPORT ---
CHEST RADIOGRAPH Indication: POST OP Technique: Single frontal view of the chest was obtained Comparison: DI CHEST,SINGLE VIEW on DOS: 12/24/24 FINDINGS: Lines and Tubes: Left chest tube has been removed. Removal of the right central venous catheter. Lungs: There is left lower lobe opacity. Pleura: No effusion. No pneumothorax. Cardiomediastinal contours: Cardiomegaly. Bones: No acute osseous abnormality. IMPRESSION: 1. Left lower
[2024-12-25 06:59] LABS: MEAN PLATELET VOLUME 8.4 FL (7.4-10.4); RED CELL DISTRIBUTION WIDTH 15.5 % (11.5-14.5)
[2024-12-25 07:37] LABS: CREATININE 0.65 MG/DL (0.60-1.10); TOTAL CARBON DIOXIDE 32.3 MMOL/L (24-32); eCRCL 96 ML/MIN; eGFR > 90 ML/MIN
--- NOTE | 2024-12-25 09:09 | PROGRESS NOTE ---
Progress Note CV Providers to CC ~ Antibiotics Ordered?: No Subjective Subjective S/P CABG x 4/ AVR POD # 3. His pain control has improved. Walked yesterday. Still not eating very much. No BM yet. He is on 1L O2. Objective Vitals Vital Signs Date Time Temp Pulse Resp B/P (MAP) Pulse Ox O2 Delivery O2 Flow Rate FiO2 12/25/24 08:24 74 12/25/24 06:00 97.6 18 152/80 (104) 96 Nasal Cannula 3.0 12/24/24 20:00 36 Lab Results: 12/25/24 0638 12/25/24 0638 Objective Lungs - a little diminished L base Heart - RRR, SR Abd/Extr - OK Incisions - CDI Coagulation Studies Laboratory Tests Test 12/22/24 12:06 12/22/24 15:10 12/22/24 15:25 Patient Sex (Coag) M Patient Height (Coag) 185cm Patient Weight (Coag) 94.0k KG Patient Blood Volume 6840 ML Pump Volume 1500 ML Total Blood Volume 8340 ML Projected Heparin Concentration 1.7 MG/KG Heparin [place] 136 Calculated Heparin Bolus 04291 UNITS Activated Coagulation Time Baseline 158 SEC (101-148) H Activated Coag Time 1.70 U/mL 339 SEC (193-297) H Activated Coag Time 2.84 U/mL 491 SEC (260-420) H Heparin Level (COAG) 0 MG/KG Calculated Heparin Req (Hep Assay) 11830 UNITS Calculated Protamine Req (Hep Assay 0 MG Activated Clotting Time 110 SEC (101-148) Prothrombin Time 15.3 SECONDS (9.0-12.0) H INR International Normalized Ratio 1.6 INR Activated Partial Thromboplast Time 35 SECONDS (22-32) H Fibrinogen 239 MG/DL (177-424) Coagulation Comments Coagulation Clinical Comments Cardiac Rhythm: Sinus Rhythm Problem\Assessment\Plan Additional Plan POD # 3 SR Still on some O2. Continue IS/ ambulation. Says he prefers rehab over home as he does not have much help at home. uses a walker. Hgb 7.8, monitor. Sepsis Screening Reassessment Date: Dec 25, 2024 Supervising Co-signing Provider: RAISSA Arnold Dec 25, 2024 09:09
[2024-12-25] MEDS: magnesium citrate 296ml oral solution PO ONE (17:21)
[2024-12-25] MEDS: amiodarone 150mg/dext, iso-os 100 ML IV ONE (19:27)
[2024-12-25] MEDS: amiodarone/D5 360MG/200ML BAG 200 ML IV SCH (20:02)
[2024-12-26] VITALS (19 sets, daily range): BP systolic 89–133; BP diastolic 48–80; PULSE 70–87; RESP 14–21; TEMP 96.7–98.4; O2SAT 92–97
[2024-12-26] MEDS: magnesium hydroxide 30ml (MOM) UD suspension PO PRN (01:55)
[2024-12-26 06:34] LABS: CREATININE 0.55 MG/DL (0.60-1.10); TOTAL CARBON DIOXIDE 34.3 MMOL/L (24-32); eCRCL 113 ML/MIN; eGFR > 90 ML/MIN
[2024-12-26 06:38] LABS: MEAN PLATELET VOLUME 8.6 FL (7.4-10.4); RED CELL DISTRIBUTION WIDTH 15.6 % (11.5-14.5)
--- NOTE | 2024-12-26 08:16 | PROGRESS NOTE ---
Progress Note CV Providers to CC ~ Antibiotics Ordered?: No Subjective Subjective S/P AVR/ CABG x 4 POD # 4. Went into A. flutter/ fib yesterday afternoon. Amiod gtt started. Converted back to SR last night around midnight. Short run of A. fib this AM otherwise SR. Feels "OK" this morning. Ok with rehab at [facility]. Objective Vitals Vital Signs Date Time Temp Pulse Resp B/P (MAP) Pulse Ox O2 Delivery O2 Flow Rate FiO2 12/26/24 02:00 97.5 76 21 89/66 (74) 93 Nasal Cannula 2.0 12/25/24 20:00 28 Lab Results: 12/26/24 0506 12/26/24 0506 Objective Lungs - fairly clear Heart - RRR, SR Abd/extr - OK Incisions - CDI Coagulation Studies Laboratory Tests Test 12/22/24 12:06 12/22/24 15:10 12/22/24 15:25 Patient Sex (Coag) M Patient Height (Coag) 185cm Patient Weight (Coag) 94.0k KG Patient Blood Volume 6840 ML Pump Volume 1500 ML Total Blood Volume 8340 ML Projected Heparin Concentration 1.7 MG/KG Heparin [place] 136 Calculated Heparin Bolus 99022 UNITS Activated Coagulation Time Baseline 158 SEC (101-148) H Activated Coag Time 1.70 U/mL 339 SEC (193-297) H Activated Coag Time 2.84 U/mL 491 SEC (260-420) H Heparin Level (COAG) 0 MG/KG Calculated Heparin Req (Hep Assay) 53191 UNITS Calculated Protamine Req (Hep Assay 0 MG Activated Clotting Time 110 SEC (101-148) Prothrombin Time 15.3 SECONDS (9.0-12.0) H INR International Normalized Ratio 1.6 INR Activated Partial Thromboplast Time 35 SECONDS (22-32) H Fibrinogen 239 MG/DL (177-424) Coagulation Comments Coagulation Clinical Comments Cardiac Rhythm: Sinus Rhythm Problem\\Assessment\\Plan Additional Plan POD # 4 A.fib, back to SR No BM yet. Add Rx. Change Amiod to PO later today. To rehab likely tomorrow. Sepsis Screening Reassessment Date: Dec 26, 2024 Supervising Co-signing Provider: RAISSA Arnold Dec 26, 2024 08:16
[2024-12-26 08:56] LABS: EOSINOPHILS % (MANUAL) 5.0 % (0-6); LYMPHOCYTES % (MANUAL) 7.0 % (21-51); METAMYLEOCYTES% (MANUAL) 1.0 % (0-0); MONOCYTES % (MANUAL) 10.0 % (2-12); NEUTROPHILS % (MANUAL) 77.0 % (42-75)
[2024-12-26 08:58] LABS: PLATELET ESTIMATE DECREASED
[2024-12-26] MEDS: magnesium citrate 296ml oral solution PO ONE (09:05)
[2024-12-26] MEDS: potassium Cl 20 mEq SR tablet PO PRN (10:26)
[2024-12-26] MEDS: HYDROcodone/acetaminophen 10/325mg tab PO PRN (11:54)
[2024-12-27] MEDS: bisacodyl 10mg suppository rectal RC PRN
[2024-12-27 02:00] VITALS: BP 96/65; PULSE 80; RESP 16; TEMP 98.1; O2SAT 93
[2024-12-27 06:00] VITALS: BP 107/77; PULSE 82; RESP 18; TEMP 97.6; O2SAT 93
[2024-12-27 07:26] LABS: MEAN PLATELET VOLUME 8.1 FL (7.4-10.4); RED CELL DISTRIBUTION WIDTH 15.8 % (11.5-14.5)
[2024-12-27 07:56] LABS: CREATININE 0.55 MG/DL (0.60-1.10); TOTAL CARBON DIOXIDE 30.0 MMOL/L (24-32); eCRCL 113 ML/MIN; eGFR > 90 ML/MIN
[2024-12-27 08:00] VITALS: RESP 18; O2SAT 93
--- NOTE | 2024-12-27 08:24 | PROGRESS NOTE ---
Progress Note CV Providers to CC ~ Antibiotics Ordered?: No Subjective Subjective S/P AVR/ CABG x 4 POD # 5. He is alert and in NAD. He is on room air. Remaining in SR. Objective Vitals Vital Signs Date Time Temp Pulse Resp B/P (MAP) Pulse Ox O2 Delivery O2 Flow Rate FiO2 12/27/24 02:00 98.1 80 16 96/65 (75) 93 Room Air 12/26/24 20:00 0 21 Lab Results: 12/27/24 0636 12/27/24 0636 Objective Lungs - fairly clear Heart - RRR, SR Abd/extr - OK Incisions - CDI Coagulation Studies Laboratory Tests Test 12/22/24 12:06 12/22/24 15:10 12/22/24 15:25 Patient Sex (Coag) M Patient Height (Coag) 185cm Patient Weight (Coag) 94.0k KG Patient Blood Volume 6840 ML Pump Volume 1500 ML Total Blood Volume 8340 ML Projected Heparin Concentration 1.7 MG/KG Heparin [place] 136 Calculated Heparin Bolus 17758 UNITS Activated Coagulation Time Baseline 158 SEC (101-148) H Activated Coag Time 1.70 U/mL 339 SEC (193-297) H Activated Coag Time 2.84 U/mL 491 SEC (260-420) H Heparin Level (COAG) 0 MG/KG Calculated Heparin Req (Hep Assay) 00473 UNITS Calculated Protamine Req (Hep Assay 0 MG Activated Clotting Time 110 SEC (101-148) Prothrombin Time 15.3 SECONDS (9.0-12.0) H INR International Normalized Ratio 1.6 INR Activated Partial Thromboplast Time 35 SECONDS (22-32) H Fibrinogen 239 MG/DL (177-424) Coagulation Comments Coagulation Clinical Comments Cardiac Rhythm: Sinus Rhythm Problem\Assessment\Plan Additional Plan POD # 5 SR CV stable. To rehab today. Sepsis Screening Reassessment Date: Dec 27, 2024 Supervising Co-signing Provider: RAISSA Arnold Dec 27, 2024 08:24
[2024-12-27 08:37] LABS: EOSINOPHILS % (MANUAL) 7.0 % (0-6); LYMPHOCYTES % (MANUAL) 9.0 % (21-51); METAMYLEOCYTES% (MANUAL) 1.0 % (0-0); MONOCYTES % (MANUAL) 8.0 % (2-12); NEUTROPHILS % (MANUAL) 75.0 % (42-75); PLATELET ESTIMATE DECREASED
[2024-12-27 13:47] VITALS: BP 126/83; PULSE 83; RESP 21; TEMP 97.4; O2SAT 94
--- NOTE | 2024-12-27 17:33 | DISCHARGE SUMMARY ---
DATE OF DISCHARGE: 12/27/2024 DICTATING PHYSICIAN: Damian Guzman DICTATING PHYSICIAN: BARBARA Johnson ADMITTING PHYSICIAN: Yo Malone MD. PREOPERATIVE DIAGNOSES: Severe multivessel coronary artery disease along with severe aortic stenosis with a past medical history of hypertension, hyperlipidemia, borderline diabetes, history of bladder cancer 40 years ago, treated with surgery. DISCHARGE DIAGNOSES: Severe multivessel coronary artery disease along with severe aortic stenosis with a past medical history of hypertension, hyperlipidemia, borderline diabetes, history of bladder cancer 40 years ago treated with surgery, and status post coronary artery bypass graft surgery x 4 along with aortic valve replacement. Atrial fibrillation resolved, back to sinus rhythm. COMPLICATIONS: Postoperatively none. CONDITION ON DISCHARGE: Stable. PROGNOSIS: Good. SUMMARY: This is a very pleasant 84-year-old gentleman who has known coronary artery disease. He underwent cardiac catheterization a couple of years ago and had stents placed in the LAD and circ systems due to problems with increasing aortic stenosis as well as exertional dyspnea. He underwent repeat cardiac catheterization a week prior to this admission. This revealed moderate disease in the LAD, diagonal, ramus, and obtuse marginal. In addition, there was moderately severe aortic stenosis with a valve area approximately 1 cm2. The patient was discharged with plans to follow up for cardiac surgery, however, was seen in the Emergency Department secondary to 12/06 chest pain. Troponins were negative. Despite this, he was admitted for further workup and ultimately felt to be a good operative candidate, taken to the operating room on 12/19/2024. Name of the operation is aortic valve replacement with a 25 mm Magna Ease pericardial valve along with coronary artery bypass grafting x 4 with reverse saphenous vein graft to the obtuse marginal, ramus and right posterior descending coronary artery and left internal mammary artery to the LAD, along with endoscopic vein harvesting and transesophageal echocardiography. Surgery was delayed for a few days because the patient had been on Plavix. Postoperatively, the patient did require platelet transfusions and packed red cell transfusion as well. The following morning, he was alert, somewhat tired, did not rest well due to noise. Pain was reasonably well controlled. Initially, he was A-paced. H and H postop day 1 was 8.3 and 23.9 with a creatinine of 0.81. He was troubled by nausea and poor appetite. Chest tubes and pacer wires were discontinued postop day #2. He was ambulated and transferred to the Progressive Care Unit. Yesterday, he had a bowel movement. He is improving in terms of his overall function and strength. He did develop atrial fibrillation a couple of days ago, was placed on an amiodarone bolus and drip and converted back to sinus rhythm. He has maintained sinus rhythm for the last day and a half. He is felt to be stable for discharge to the rehab facility. DISCHARGE PROGRAM: Followup appointment with cardiac surgeon's office in 2 weeks, with Dr. Carolina Aguayo in 4 weeks and with his primary physician in 6 weeks. ACTIVITY: Physical therapy and occupational therapy. DIET: He will be on a regular diet, transitioning to a heart-healthy diet as tolerated. MEDICATIONS ON DISCHARGE: His medications will include ezetimibe 10 mg p.o. daily, metformin 500 mg p.o. daily, oxybutynin 2.5 mg p.o. daily, Ensure 1 can p.o. t.i.d., [place] 10/325 mg 1 p.o. q.4 hours p.r.n. pain, Tylenol 650 mg p.o. q.4 hours p.r.n. mild pain, aspirin 81 mg p.o. daily, Lipitor 10 mg p.o. daily, Colace 10 mg suppository p.r.n. constipation, Milk of Magnesia 30 mL p.o. b.i.d. and p.r.n. constipation, metoprolol tartrate 12.5 mg p.o. b.i.d., Protonix 40 mg p.o. daily, senna-S 1 tablet p.o. b.i.d., amiodarone 200 mg p.o. b.i.d. Damian Malone MD TID: [id number] RECEIPT: [id number] Norah/LANDY cc: Yo Malone MD, CAROLINA AGUAYO DO(User), Primary Care Physician
[2024-12-27] MEDS ORDERED: AMIO200T73 PO (17:44)
[2024-12-27] MEDS ORDERED: HYDR-3973 PO (17:45)
[2024-12-27] MEDS ORDERED: LOP25T PO (17:52)
== END 2024-12-27 14:57 | DRG 219 ==
LOC: ER 18:45 → PCU 3S 19:52 → CICU 2S 12-22 16:19 → PCU 3S 12-24 13:55
PROVIDERS: ADMIT Internal Medicine; ATTEND Internal Medicine
PROC: 02RF08Z Replacement of Aortic Valve with Zooplastic Tissue, Open Approach (ICD-10-PCS; 2024-12-22)
PROC: 06BP4ZZ Excision of Right Saphenous Vein, Percutaneous Endoscopic Approach (ICD-10-PCS; 2024-12-22)
PROC: 02100Z9 Bypass Coronary Artery, One Artery from Left Internal Mammary, Open Approach (ICD-10-PCS; 2024-12-22)
PROC: B24BZZ4 Ultrasonography of Heart with Aorta, Transesophageal (ICD-10-PCS; 2024-12-22)
PROC: 5A1221Z Performance of Cardiac Output, Continuous (ICD-10-PCS; 2024-12-22)
PROC: 30233R1 Transfusion of Nonautologous Platelets into Peripheral Vein, Percutaneous Approach (ICD-10-PCS; 2024-12-22)
PROC: 30233N1 Transfusion of Nonautologous Red Blood Cells into Peripheral Vein, Percutaneous Approach (ICD-10-PCS; 2024-12-22)
PROC: 021209W Bypass Coronary Artery, Three Arteries from Aorta with Autologous Venous Tissue, Open Approach (ICD-10-PCS; principal; 2024-12-22 11:22)
DX: I25.110 Atherosclerotic heart disease of native coronary artery with unstable angina pectoris (principal); J81.0 Acute pulmonary edema; I48.92 Unspecified atrial flutter; I35.0 Nonrheumatic aortic (valve) stenosis; E11.9 Type 2 diabetes mellitus without complications; I10 Essential (primary) hypertension; Z96.641 Presence of right artificial hip joint; E78.00 Pure hypercholesterolemia, unspecified; I48.91 Unspecified atrial fibrillation; Z85.51 Personal history of malignant neoplasm of bladder; Z79.82 Long term (current) use of aspirin; Z79.01 Long term (current) use of anticoagulants; Z79.899 Other long term (current) drug therapy; Z79.84 Long term (current) use of oral hypoglycemic drugs
CPT/HCPCS: 36415; 36430; 36600; 71045; 71046; 71250; 76376; 80048; 80053; 80061; 82330; 82435; 82803; 82947; 82948; 83036; 83735; 83880; 84100; 84132; 84295; 84484; 85007; 85018; 85025; 85347; 85384; 85610; 85730; 86885; 86900; 86901; 86920; 87081; 88300; 93005; 93306; 93312; 93325; 93880; 93970; 94002; 94010; 94668; 94760; 96374; 96375; 97110; 97116; 97161; 97530; 99285; A4615; A4618; A6213; A6258; A6402; A6449; A6590; A7000; A7048; C1751; G0378; J0169; J0282; J0690; J1644; J1815; J1938; J2151; J2250; J2270; J2371; J2405; J2704; J2765; J2919; J3373; J3480; J3490; J7030; J7040; J7050; J7120; P9016; P9035; P9045; P9047